=== PATIENT | female | born 1980 | race Caucasian/White ===

== ENCOUNTER 2018-08-29 22:25 | Inpatient (IN) | payer OTHER ==
--- NOTE | 2018-08-29 22:58 | PDOC ---
History of Present Illness - General Chief Complaint: Altered Mental Status Stated Complaint: ALTERED MENTAL STATUS Time Seen by Provider: 08/29/18 22:58 History Source: Patient - History of Present Illness Initial Comments: 08/29/18 23:09 HPI obtained from daughter and [facility] The patient is a 37 year old female with a PMH of Asthma was BIBEMS for AMS. Daughter @ bedside states around 9:30 or 10 p.m. she heard a thud and found patient on the floor leaning on her R hand. When patient tried to get up she fell three times and hit her head. Patient is A&O x2, (oriented to self and place but not time) and then A&O x3. On attending HPI patient notes she has had hematemesis since yesterday and is A&O x2. The patient denies chest pain, shortness of breath, fevers/chills, lightheadedness, palpitations, headache. Surgical history: , Tubal ligation Past History - Past Medical History Allergies/Adverse Reactions: Allergies Allergy/AdvReac Type Severity Reaction Status Date / Time No Allergy Information Allergy Verified 08/29/18 22:36 Available Home Medications: Ambulatory Orders Unobtainable 08/29/18 - Suicide/Smoking/Psychosocial Hx Smoking History: Unknown if ever smoked Have you smoked in the past 12 months: No Information on smoking cessation initiated: No Hx Alcohol Use: Yes Drug/Substance Use Hx: Yes (unknown) Review of Systems - Review of Systems Constitutional: No: Chills, Fever HEENTM: No: Recent change in vision Respiratory: Yes: Hemoptysis Cardiac (ROS): No: Chest Pain, Palpitations *Physical Exam - Vital Signs Last Vital Signs Temp Pulse Resp BP Pulse Ox 98.1 F 120 H 16 129/72 97 08/29/18 22:33 08/29/18 22:33 08/29/18 22:33 08/29/18 22:33 08/29/18 22:33 - Physical Exam Comments: 08/30/18 02:27 General: awake, slow to respond to questions Neuro: variability between A&O x2 -x3 (intermittently oriented to time), CN II- XII grossly intact HEENT: atraumatic, PEERL, EOMI, dried blood in mouth, neck supple CV: S1, S2, RRR Respiratory: CLTA B/L Abdomen: soft, no TTP, (+) bowel sounds ED Treatment Course - LABORATORY CBC & Chemistry Diagram: 08/30/18 00:10 08/30/18 00:10 Medical Decision Making - Medical Decision Making 37 year old female JESS with daughter for AMS @ approximately 10:20 p.m.. S/p fall with head trauma. VS unremarkable PE significant for dried blood in mouth, report of hematemesis by EMS Negative trauma exam (pelvis stable, moves all 4 extremities, no C-spine, L/T/S midline spinal TTP or bony stepoffs ED Course: @ 0004 Patient w/active hematemesis IV Fluid Resuscitation, Protonix, Zofran T/S pending 08/30/18 00:31 My read of Head CT shows no active bleed 08/30/18 02:[address] negative Attending discussed case w/GI requests urine porphyia, ? AIP 08/30/18 02:33 Hb stable Leukocytosis 14.6 -? reactive vs. acute infectious process FOBT (-) UA, UDS pending Patient admitted to inpatient hospitalist service, ICU 08/30/18 02:35 Clinical Impression: AMS 2/2 to ? seizure vs. Toxic substance &/or withdrawal; GI bleed 2/2 ? AIP vs. Esophageal tear/Esophageal/Aortic fistula (less likely) *DC/Admit/Observation/Transfer Diagnosis at time of Disposition: Hematemesis of unknown cause - Discharge Dispostion Condition at time of disposition: Fair Decision to Admit order: Yes - Referrals - Patient Instructions - Post Discharge Activity
[2018-08-29] MEDS ORDERED: SODIUM CHLORIDE 0.9% 500 ML INFUS.BAG IV ONE (23:32)
[2018-08-29] MEDS ORDERED: PANTOPRAZOLE SODIUM 40 MG VIAL IVPUSH ONE (23:43)
[2018-08-29] MEDS ORDERED: ONDANSETRON 4 MG/2 ML VIAL ONE (23:58)
[2018-08-30] MEDS ORDERED: PANTOPRAZOLE SODIUM 40 MG/100 ML BAG IVPB ONE (00:02)
[2018-08-30] MEDS ORDERED: SODIUM CHLORIDE 0.9% 500 ML INFUS.BAG IV ONE (00:05)
[2018-08-30] MEDS ORDERED: ONDANSETRON 4 MG/2 ML VIAL IVPUSH PRN (00:05)
--- NOTE | 2018-08-30 00:12 | PDOC ---
Documentation entered by Leif Barboza SCRIBE, acting as scribe for Cinthya Perdue DO. Cinthya Perdue DO: This documentation has been prepared by the Jabari acosta Daniel, SCRIBE, under my direction and personally reviewed by me in its entirety. I confirm that the documentation accurately reflects all work, treatment, procedures, and medical decision making performed by me. Attending Attestation - Resident Resident Name: Bree Jordan - ED Attending Attestation I have performed the following: I have examined & evaluated the patient, The case was reviewed & discussed with the resident, I agree w/resident's findings & plan, Exceptions are as noted - HPI HPI: 08/29/18 23:32 The patient is a 37 year old female with a past medical history of asthma (on albuterol and steroids PRN) and anxiety brought in by EMS today for evaluation of altered mental status. The patients daughter reports that she found the patient on the floor on her right side around 10 PM with altered mental status after hearing her fall and called EMS. She states that the patient tried to get up and fell 3 times and started having tremors. Patient reports that she had shortness of breath earlier but it resolved with her pump. She states that she hit her head multiple times during the fall. She notes vomiting blood since yesterday. Patient denies any drug use and states last alcohol use was last year. Patient is oriented to person, doesn't recognize daughter, thinks it is 2006, and believes that she is at [facility]. Patient denies headache, lightheadedness. Denies fever, chills. Denies chest pain, shortness of breath. Denies nausea, diarrhea, abdominal pain. Surgical history: - Physicial Exam PE: 08/29/18 23:49 Constitutional: Awake, alert, oriented only to person. No acute distress. Head: Normocephalic. Atraumatic Eyes: PERRL. EOMI. Conjunctivae are not pale. ENT: +coffee grounds on mucous membranes and dried blood in mouth. Mucous membranes are moist and intact. Posterior pharynx without exudates or erythema. Uvula midline. Neck: Supple. Full ROM. No lymphadenopathy. Cardiovascular: Regular rate. Regular rhythm. S1, S2 regular. Distal pulses are 2+ and symmetric. Pulmonary/Chest: No evidence of respiratory distress. Clear to auscultation bilaterally No wheezing, rales or rhonchi. Abdominal: Soft and non-distended. There is no tenderness. No rebound, guarding or rigidity. No organomegaly. No palpable masses. Good bowel sounds. Back: No CVA tenderness. Musculoskeletal: No edema. No cyanosis. No clubbing. Full range of motion in all extremities. Nocalf tenderness. Radial/pedal pulses are intact and 2+ bilaterally Skin: Skin is warm and dry. No petechiae. No purpura. Neurological: Alert and oriented to person but not place or time. Cranial nerves II-XII are grossly intact. Normal speech. Strength is grossly symmetric. No sensory deficits. Psychiatric: Good eye contact. Normal interaction, affect and behavior. - Critical Care Time Total Critical Care Time: 45 Critical Care Statement: The care of this patient involved high complexity decision making to prevent further life threatening deterioration of the patient 's condition and/or to evaluate & treat vital organ system(s) failure or risk of failure. - Medical Decision Making 08/30/18 00:08 I, Dr. Cinthya Perdue, DO, attest that this document has been prepared under my direction and personally reviewed by me in its entirety. I further attest, that it accurately reflects all work, treatment, procedures and medical decision -making performed by me. 08/30/18 00:08 a/p: 37yo female presents from home with her daughter for eval of altered ms -pt with dried blood in the mouth -per the pt - she is aaox1-person, confused to place, time, events of the evening -per the daughter, she heard her mother fall - when she found her she was trying to get up between the kitchen and the living room and kept falling, unable to stand -pt moving all extremities -no c/t/l spine ttp -pt states she has been vomiting blood since yesterday, denies abd pain -pt denies melena -pt with tremors, appears anxious, confused -pts muscle strength and sensation intact -will send labs, ekg, cxr, head ct 08/30/18 00:10 pt with large episode of vomiting blood - red with coffee grounds, given protonix, zofran, ivf hydration pt states she normally goes to [facility] - hx of asthma, anxiety, c section, tubal ligation -pt states her abd pain has been present x last few days pt still confused, tremulous denies recent etoh use, states last use was 1 year ago denies drug use abd is soft, no ttp 08/30/18 00:11 states last menstrual cycle was August 10 08/30/18 01:08 elevated wbc h/h stable head ct without acute findings 08/30/18 01:[address] hoffman - agrees with protonix and labs, will see in consult, if worsening bleeding place ngt with irrigation. 08/30/18 01:26 case discussed w tamiko who accepts pt to service 08/30/18 02:01 case discussed with the ICU resident, accepts pt to icu Heart Score/ECG Review - ECG Intrepretation Comment:: 08/30/18 01:09 sinus tach at 111, nl axis, nl interval, t wave inversions III which are nonspecific
[2018-08-30 00:27] LABS: BASO % 0.3 % (0-2.0); EOS % 0.1 % (0-4.5); HEMATOCRIT 41.3 % (32.4-45.2); HEMOGLOBIN 13.6 GM/dL (10.7-15.3); LYMPH % 7.7 % (8-40); MCH 27.7 pg (25.7-33.7); MEAN CELL VOLUME 83.9 fl (80-96); MEAN PLT VOLUME 9.4 fl (7.5-11.1); MONO % 3.7 % (3.8-10.2); NEUT % 88.2 % (42.8-82.8); PLATELET COUNT 270 K/MM3 (134-434); RBC 4.93 M/mm3 (3.60-5.2); RDW 14.3 % (11.6-15.6); WHITE BLOOD COUNT 14.6 K/mm3 (4.0-10.0)
[2018-08-30] MEDS ORDERED: PANTOPRAZOLE SODIUM 80 MG in SODIUM CHLORIDE 100 ML IVPB SCH (00:45)
[2018-08-30 01:09] LABS: ALBUMIN 4.1 g/dl (3.4-5.0); ALK PHOS 73 U/L (45-117); ANION GAP 11 MMOL/L (8-16); BILIRUBIN,TOTAL 0.2 mg/dL (0.2-1); BLOOD UREA NITROGEN 8.6 mg/dL (7-18); CALCIUM 7.9 mg/dL (8.5-10.1); CHLORIDE 109 mmol/L (98-107); CO2 21 mmol/L (21-32); CREATININE 0.8 mg/dL (0.55-1.3); GLUCOSE,RANDOM 120 mg/dL (74-106); SGOT/AST 17 U/L (15-37); SGPT/ALT 24 U/L (13-61); SODIUM 141 mmol/L (136-145); TOT PROT 6.9 g/dl (6.4-8.2)
[2018-08-30 01:54] LABS: VENOUS PC02 42.8 mmHg (41-51); VENOUS PH 7.29 (7.31-7.41); VENOUS PO2 69.2 mmHg (30-40)
[2018-08-30] MEDS ORDERED: PANTOPRAZOLE SODIUM 40 MG VIAL ONE (01:58)
[2018-08-30 02:13] LABS: ACTIVATED PTT 26.1 SECONDS (25.2-36.5); INR 1.08 (0.83-1.09); PROTHROMBIN TIME (PATIENT) 12.7 SEC (9.7-13.0)
[2018-08-30 02:33] LABS: COCAINE, UR NEGATIVE ng/ml (CUTOFF=300); METHADONE, UR NEGATIVE ng/ml (CUTOFF=300); OPIATES, URI NEGATIVE ng/ml (CUTOFF=300); PHENCYCLIDINE,URINE NEGATIVE ng/ml (CUTOFF=25); URINE AMPHETAMINES NEGATIVE ng/ml (CUTOFF=500); URINE BARBITURATES NEGATIVE ng/ml (CUTOFF=200); URINE BENZODIAZEPINES NEGATIVE ng/ml (CUTOFF=200)
[2018-08-30 02:41] LABS: EPI CELLS 2.4 /HPF (0-5/HPF); HYALINE CASTS 16 /lpf (0-8); PH,URINE 5.5 (5.0-8.0); URINE APPEARANCE CLEAR; URINE BACTERIA 2.7 /hpf (NEGATIVE); URINE BILIRUBIN NEGATIVE (NEGATIVE); URINE COLOR YELLOW; URINE GLUCOSE (UA) NEGATIVE (NEGATIVE); URINE KETONE NEGATIVE (NEGATIVE); URINE LEUK ESTERASE NEGATIVE (NEGATIVE); URINE NITRITE NEGATIVE (NEGATIVE); URINE PROTEIN 1+ (NEGATIVE); URINE RBC 2 /hpf (0-4); URINE WBC 1 /hpf (0-5)
[2018-08-30 02:50] LABS: MAGNESIUM 2.4 mg/dL (1.8-2.4)
--- NOTE | 2018-08-30 02:51 | CONSULT ---
Consultation: CONSULT SERVICE: ICU Resident HISTORY OF PRESENT ILLNESS: 37yo F with apparent only history of asthma treated mostly through [facility] system who presents here s/p fall and AMS. Pt was heard to fall by daughter at home and when observed pt was seen getting up and then falling back onto her R side x3 episodes. Pt was taken to the ER for further evaluation due to having completely altered mentation and upon arrival pt reported she was in the year 2006, at [facility], and would point at her daughter and state that it was her brother. Throughout her ER stay pt began to regain some mentation, however she had one episode of hematemesis estimated to be around 50+cc worth which covered to the foot of her stretcher. Upon my evaluation pt was oriented x2 and had trouble with her location, but when reminded she stated that someone told her that before and she forgot. Pt denies any memory of her hematemesis at the hospital and only remembers falling once. Pt is slightly anxious, but otherwise has no complaints at this time. Of note, pt's daughter reported to ER staff that the pt had a previous episode of hematemesis yesterday, however did not fall nor had any mentation issues. Pt' s daughter reports that she has never seen the patient drink within the past year or so and has only seen one-a-day vitamins as her only medication. Both patient and daughter deny any travel outside of [place]. Pt works getting her GED at this time and lives in an apartment with her daughter. Denies any abnormal food or drink (also confirmed by daughter). There is reported tremoring , however at my time of exam pt seems to be only anxious without real exhitition of essential/intention tremor. REVIEW OF SYSTEMS: As per HPI. Limited due to memory deficiencies of events. PHYSICAL EXAMINATION Vital Signs 08/29/18 22:33 Temperature 98.1 F Pulse Rate 120 H Respiratory 16 Rate Blood Pressure 129/72 O2 Sat by Pulse 97 Oximetry (%) GENERAL: NAD, Awake, alert, and oriented x2, however remembers her location being corrected previously. HEENT: NC/AT, no scalp hematomas noted, no rodriguez signs, EOMI, BLAISE, sclera anicteric, R eye with conjunctival injections, no conjunctival pallor noted. Dried blood in posterior oropharynx, MMM NECK: No JVD, soft, no TTP, no rash LUNGS: CTA bilaterally. No wheezes, and no crackles. No accessory muscle use. HEART: Tachycardic at 105bpm, normal S1 and S2 without murmur ABDOMEN: Soft, NT/ND, normoactive BS, no aortic or renal bruits, no celiac/SMA bruits, no guarding, no masses appreciated, no hepatomegaly and liver edge without nodularity. MUSCULOSKELETAL: No CVA tenderness. EXTREMITIES: 2+ DP pulses, warm, well-perfused. No calf tenderness. No peripheral edema. Cap refill <2sec NEUROLOGICAL: educational technology coordinator II-XII intact. Strength 5/5 in all four extremities. Sensation intact thorughout. Normal speech. Gait not observed. No tremor. PSYCHIATRIC: Cooperative. Good eye contact. Appropriate mood and affect. SKIN: Warm, dry, no rashes around eyes or rest of body. Laboratory Results 08/30/18 08/30/18 08/30/18 00:10 00:10 00:10 WBC 14.6 H RBC 4.93 Hgb 13.6 Hct 41.3 MCV 83.9 MCH 27.7 MCHC 33.0 RDW 14.3 Plt Count 270 MPV 9.4 Absolute Neuts (auto) 12.9 H Neutrophils % 88.2 H Lymphocytes % 7.7 L Monocytes % 3.7 L Eosinophils % 0.1 Basophils % 0.3 Nucleated RBC % 0 PT with INR INR PTT (Actin FS) VBG pH POC VBG pCO2 POC VBG pO2 VBG HCO3 VBG O2 Sat (Sonia) VBG Base Excess Sodium 141 Potassium 4.0 Chloride 109 H Carbon Dioxide 21 Anion Gap 11 BUN 8.6 Creatinine 0.8 Est GFR (CKD-EPI)AfAm 107.64 Est GFR (CKD-EPI)NonAf 92.87 Random Glucose 120 H Lactic Acid Calcium 7.9 L Total Bilirubin 0.2 AST 17 ALT 24 Alkaline Phosphatase 73 Ammonia Creatine Kinase 156 Creatine Kinase Index 0.8 CK-MB (CK-2) 1.4 Troponin I < 0.02 Total Protein 6.9 Albumin 4.1 TSH 2.61 Serum , Qual Negative Stool Occult Blood Salicylates Opiates Screen Methadone Screen Acetaminophen Barbiturate Screen Phencyclidine Screen Ur Amphetamines Screen MDMA (Ecstasy) Screen Benzodiazepines Screen Cocaine Screen U Marijuana (THC) Screen 08/30/18 08/30/1808/30/19 00:10 00:35 00:58 WBC RBC Hgb Hct MCV MCH MCHC RDW Plt Count MPV Absolute Neuts (auto) Neutrophils % Lymphocytes % Monocytes % Eosinophils % Basophils % Nucleated RBC % PT with INR INR PTT (Actin FS) VBG pH POC VBG pCO2 POC VBG pO2 VBG HCO3 VBG O2 Sat (Sonia) VBG Base Excess Sodium Potassium Chloride Carbon Dioxide Anion Gap BUN Creatinine Est GFR (CKD-EPI)AfAm Est GFR (CKD-EPI)NonAf Random Glucose Lactic Acid Calcium Total Bilirubin AST ALT Alkaline Phosphatase Ammonia 41.60 H Creatine Kinase Creatine Kinase Index CK-MB (CK-2) Troponin I Total Protein Albumin TSH Serum , Qual Stool Occult Blood Negative Salicylates 1.9 L Opiates Screen Methadone Screen Acetaminophen < 2.0 L Barbiturate Screen Phencyclidine Screen Ur Amphetamines Screen MDMA (Ecstasy) Screen Benzodiazepines Screen Cocaine Screen U Marijuana (THC) Screen 08/30/18 08/30/18 08/30/18 01:25 01:36 01:36 WBC RBC Hgb Hct MCV MCH MCHC RDW Plt Count MPV Absolute Neuts (auto) Neutrophils % Lymphocytes % Monocytes % Eosinophils % Basophils % Nucleated RBC % PT with INR 12.70 INR 1.08 PTT (Actin FS) 26.1 VBG pH POC VBG pCO2 POC VBG pO2 VBG HCO3 VBG O2 Sat (Sonia) VBG Base Excess Sodium Potassium Chloride Carbon Dioxide Anion Gap BUN Creatinine Est GFR (CKD-EPI)AfAm Est GFR (CKD-EPI)NonAf Random Glucose Lactic Acid 1.1 Calcium Total Bilirubin AST ALT Alkaline Phosphatase Ammonia Creatine Kinase Creatine Kinase Index CK-MB (CK-2) Troponin I Total Protein Albumin TSH Serum , Qual Stool Occult Blood Salicylates Opiates Screen Negative Methadone Screen Negative Acetaminophen Barbiturate Screen Negative Phencyclidine Screen Negative Ur Amphetamines Screen Negative MDMA (Ecstasy) Screen Negative Benzodiazepines Screen Negative Cocaine Screen Negative U Marijuana (THC) Screen Negative 08/30/18 01:36 WBC RBC Hgb Hct MCV MCH MCHC RDW Plt Count MPV Absolute Neuts (auto) Neutrophils % Lymphocytes % Monocytes % Eosinophils % Basophils % Nucleated RBC % PT with INR INR PTT (Actin FS) VBG pH 7.29 L POC VBG pCO2 42.8 POC VBG pO2 69.2 H VBG HCO3 20.0 L VBG O2 Sat (Sonia) 92.4 H VBG Base Excess -5.8 L Sodium Potassium Chloride Carbon Dioxide Anion Gap BUN Creatinine Est GFR (CKD-EPI)AfAm Est GFR (CKD-EPI)NonAf Random Glucose Lactic Acid Calcium Total Bilirubin AST ALT Alkaline Phosphatase Ammonia Creatine Kinase Creatine Kinase Index CK-MB (CK-2) Troponin I Total Protein Albumin TSH Serum , Qual Stool Occult Blood Salicylates Opiates Screen Methadone Screen Acetaminophen Barbiturate Screen Phencyclidine Screen Ur Amphetamines Screen MDMA (Ecstasy) Screen Benzodiazepines Screen Cocaine Screen U Marijuana (THC) Screen Active Medications Generic Name Dose Route Start Last Admin Trade Name Freq PRN Reason Stop Dose Admin Pantoprazole Sodium 80 mg/ 100 mls @ 10 mls/hr 08/30/18 00:45 08/30/18 02:18 Sodium Chloride IVPB 10 mls/hr Q10H ESTHER Administration 8 MG/HR Ondansetron HCl 4 mg 08/30/18 00:05 08/30/18 00:13 Zofran Injection IVPUSH 4 mg Q4H PRN Administration NAUSEA AND/OR VOMITING Head CT images reviewed: No acute pathology CXR image reviewed: No acute pathology noted ECG - Sinus tachycardia at 111bpm, Normal axis, normal R-wave progression, no THANIA/STD, isolated TWI in V3 only, signs of R-heart strain on ECG vs. potential lead placements, QTc 486ms ASSESSMENT/PLAN: Metabolic encephalopathy of unclear etiology Hematemesis Leukocytosis Acidemia --Unclear etiology for pt's exhibiting symptoms --Suspect seizure most likely given pt's improvement of mentation; possible EEG and monitor for seizure-like activity --GI consulted and will r/o porphyria as pt both has neurologic and abdominal symptoms however does not have rash --Will obtain EMILIANO, ESR, CRP to r/o any OPERATIONS RESEARCH ANALYST vasculities in case of unconventional presentation --Doubt alcohol withdrawal --Doubt infection despite leukocytosis --Standard UTox negative at this point --Ammonia of 41 not severe enough to cause encephalopathy and subsequent resolution without intervention --Given Hematemesis will continue IV Protonix for UGIB --Continue D5-1/2NS@83cc/hr for hydration --Monitor hemodynamics and H/H --Pt Wells Criteria 1.5 and given ECG with drop attack ordered D-dimer for r/o --Minimal non-anion gap metabolic acidemia can be explained by hyperchloridemia FEN: Fluids: D5-1/2NS@83cc/hr Electrolyte abnormalities: HypoCa despite correction; repleted 1gm CaGluconate Nutrition: NPO for overnight; advance to clear liquid if no more episodes of hematemesis PPX: DVT - SCDs only due to hematemesis GI - Already on protonix Dispo: Due to unknown etiology for patient's symptoms and significant amount of hematemesis pt can be monitored in ICU overnight. If pt remains stable can transfer to med-surg in MARIANGEL Xiong DO - PGY-2 Visit type - Emergency Visit Emergency Visit: Yes ED Registration Date: 08/30/18 Care time: The patient presented to the Emergency Department on the above date and was hospitalized for further evaluation of their emergent condition. - New Patient This patient is new to me today: Yes Date on this admission: 08/30/18 - Critical Care Critical Care patient: No
[2018-08-30] MEDS ORDERED: CALCIUM GLUCONATE 10% - 1,000 MG/10 ML VIAL IVPUSH ONE (02:54)
[2018-08-30] MEDS ORDERED: SODIUM CHLORIDE 1,000 ML IV SCH (03:00)
[2018-08-30] MEDS ORDERED: DEXTROSE 5%-0.45% SALINE 1,000 ML IV SCH (03:15)
--- NOTE | 2018-08-30 03:23 | HP ---
CHIEF COMPLAINT: AMS and hematemesis x 1 day PCP: HISTORY OF PRESENT ILLNESS: Pt is a 37 yo F with pmhx of asthma and anxiety disorder BIBEMS after her preteen daughter found her on the floor after a loud thud this evening. Per daughter she had just left the mother for a couple of minutes to her room to play video games when she heard the sound and found her arms shaking. While the daughter was on the phone with EMS, the mother threw up reddish colored vomit. Initially in the ED, the pt thought she was at [facility], did not recognize her daughter, and thought it was 2006. In the ED, she again vomited red/coffee colored substance onto her clothes, non projectile, no obvious clots. Pt denies alcohol ingestion (per ED only on 's day). ED reported she used her albuterol inhaler earlier in the day, per pt, the last time she used her inhaler was april. No prior seizure disorders. Pt reports migraine headaches, with last episode about 2 years ago, relieved with over the counter medications. Pt reports using multiple "supplements" does not have a detailsWhen I assessed the patient, she was oriented x3 but did not remember what had happened. Pt lives alone with daughter. Pt's mother lives in [place] but her father lives in [place] but per pt 'is too sick to take care of anyone" . Pt was concerned about the welfare of her daughter while she was in the hospital and wanted to leave tonight. She however agreed to stay till morning for further evaluation ER course was notable for: (1) Head CT- ve for acute pathology (2)WBC-14.6, H/H-13.6/41.3, Cl-109, BUN/cr- (3) Recent Travel: PAST MEDICAL HISTORY: Asthma, migraines, anxiety PAST SURGICAL HISTORY: B/L tubal ligation Social History: Smoking:Denies Alcohol: occassional Drugs: Denies Family History: Allergies No Allergy Information Available Allergy (Verified 08/29/18 22:36) HOME MEDICATIONS: Home Medications Medication Instructions Recorded Unobtainable 08/29/18 REVIEW OF SYSTEMS CONSTITUTIONAL: Absent: fever, chills, diaphoresis, generalized weakness, malaise, loss of appetite, weight change HEENT: Absent: rhinorrhea, nasal congestion, throat pain, throat swelling, difficulty swallowing, mouth swelling, ear pain, eye pain, visual changes CARDIOVASCULAR: Absent: chest pain, syncope, palpitations, irregular heart rate, lightheadedness , peripheral edema RESPIRATORY: Absent: cough, shortness of breath, dyspnea with exertion, orthopnea, wheezing, stridor, hemoptysis GASTROINTESTINAL:vomiting+ Absent: abdominal pain, abdominal distension, nausea, diarrhea, constipation, melena, hematochezia GENITOURINARY: Absent: dysuria, frequency, urgency, hesitancy, hematuria, flank pain, genital pain MUSCULOSKELETAL: Absent: myalgia, arthralgia, joint swelling, back pain, neck pain SKIN: Absent: rash, itching, pallor HEMATOLOGIC/IMMUNOLOGIC: Absent: easy bleeding, easy bruising, lymphadenopathy, frequent infections ENDOCRINE: Absent: unexplained weight gain, unexplained weight loss, heat intolerance, cold intolerance NEUROLOGIC: mental status changes+, possible seizure, headache after fall, bladder or bowel incontinence+ Absent: focal weakness or paresthesias, dizziness, unsteady gait, PSYCHIATRIC: Absent: anxiety, depression, suicidal or homicidal ideation, hallucinations. PHYSICAL EXAMINATION Vital Signs - 24 hr 08/29/18 22:33 Temperature 98.1 F Pulse Rate 120 H Respiratory 16 Rate Blood Pressure 129/72 O2 Sat by Pulse 97 Oximetry (%) GENERAL: Awake, alert, and fully oriented, in no acute distress. HEAD: Normal with no signs of trauma. EYES: Pupils equal, round and reactive to light, extraocular movements intact, sclera anicteric, red R conjunctiva . EARS, NOSE, THROAT: Ears normal, nares patent, oropharynx clear without exudates. Dried blood over lips and over nose, with no active bleeding or injures tongue or cheek NECK: Normal range of motion, supple without lymphadenopathy LUNGS: Breath sounds equal, clear to auscultation bilaterally. No wheezes, and no crackles. No accessory muscle use. HEART: Regular rate and rhythm, normal S1 and S2 without murmur ABDOMEN: Soft, nontender, not distended, normoactive bowel sounds, no guarding, no rebound, no masses. No hepatomegaly or splenomegaly. MUSCULOSKELETAL: Normal range of motion at all joints. No bony deformities or tenderness. No CVA tenderness. UPPER EXTREMITIES: 2+ pulses, warm, well-perfused. No cyanosis. No clubbing. tremors, no asterexis LOWER EXTREMITIES: 2+ pulses, warm, well-perfused. No calf tenderness. No peripheral edema. NEUROLOGICAL: Initially not oriented, by the time I saw she was AA x3 with improved recollection of events over time. Increased knee reflex bilaterally. Absent babinski. Cranial nerves II-XII intact. Normal speech.Gait not observed PSYCHIATRIC: Cooperative. Good eye contact. Appropriate mood and affect. SKIN: Warm, dry, normal turgor, no rashes or lesions noted, normal capillary refill. Laboratory Results - last 24 hr 08/30/18 08/30/18 08/30/18 00:09 00:10 00:10 WBC 14.6 H RBC 4.93 Hgb 13.6 Hct 41.3 MCV 83.9 MCH 27.7 MCHC 33.0 RDW 14.3 Plt Count 270 MPV 9.4 Absolute Neuts (auto) 12.9 H Neutrophils % 88.2 H Lymphocytes % 7.7 L Monocytes % 3.7 L Eosinophils % 0.1 Basophils % 0.3 Nucleated RBC % 0 PT with INR INR PTT (Actin FS) VBG pH POC VBG pCO2 POC VBG pO2 VBG HCO3 VBG O2 Sat (Sonia) VBG Base Excess Sodium 141 Potassium 4.0 Chloride 109 H Carbon Dioxide 21 Anion Gap 11 BUN 8.6 Creatinine 0.8 Est GFR (CKD-EPI)AfAm 107.64 Est GFR (CKD-EPI)NonAf 92.87 Random Glucose 120 H Lactic Acid Calcium 7.9 L Magnesium Total Bilirubin 0.2 AST 17 ALT 24 Alkaline Phosphatase 73 Ammonia Creatine Kinase 156 Creatine Kinase Index 0.8 CK-MB (CK-2) 1.4 Troponin I < 0.02 Total Protein 6.9 Albumin 4.1 TSH 2.61 Serum , Qual Urine Color Urine Appearance Urine pH Ur Specific [place] Urine Protein Urine Glucose (UA) Urine Ketones Urine Blood Urine Nitrite Urine Bilirubin Urine Urobilinogen Ur Leukocyte Esterase Urine WBC (Auto) Urine RBC (Auto) Urine Casts (Auto) U Epithel Cells (Auto) Urine Bacteria (Auto) Stool Occult Blood Salicylates Opiates Screen Methadone Screen Acetaminophen Barbiturate Screen Phencyclidine Screen Ur Amphetamines Screen MDMA (Ecstasy) Screen Benzodiazepines Screen Cocaine Screen U Marijuana (THC) Screen Alcohol, Quantitative Blood Type O POSITIVE Antibody Screen Negative 08/30/18 08/30/18 08/30/18 00:10 00:10 00:10 WBC RBC Hgb Hct MCV MCH MCHC RDW Plt Count MPV Absolute Neuts (auto) Neutrophils % Lymphocytes % Monocytes % Eosinophils % Basophils % Nucleated RBC % PT with INR INR PTT (Actin FS) VBG pH POC VBG pCO2 POC VBG pO2 VBG HCO3 VBG O2 Sat (Sonia) VBG Base Excess Sodium Potassium Chloride Carbon Dioxide Anion Gap BUN Creatinine Est GFR (CKD-EPI)AfAm Est GFR (CKD-EPI)NonAf Random Glucose Lactic Acid Calcium Magnesium 2.4 Total Bilirubin AST ALT Alkaline Phosphatase Ammonia Creatine Kinase Creatine Kinase Index CK-MB (CK-2) Troponin I Total Protein Albumin TSH Serum , Qual Negative Urine Color Urine Appearance Urine pH Ur Specific [place] Urine Protein Urine Glucose (UA) Urine Ketones Urine Blood Urine Nitrite Urine Bilirubin Urine Urobilinogen Ur Leukocyte Esterase Urine WBC (Auto) Urine RBC (Auto) Urine Casts (Auto) U Epithel Cells (Auto) Urine Bacteria (Auto) Stool Occult Blood Salicylates 1.9 L Opiates Screen Methadone Screen Acetaminophen < 2.0 L Barbiturate Screen Phencyclidine Screen Ur Amphetamines Screen MDMA (Ecstasy) Screen Benzodiazepines Screen Cocaine Screen U Marijuana (THC) Screen Alcohol, Quantitative < 3.0 Blood Type Antibody Screen 08/30/18 08/30/18 08/30/18 00:35 00:58 01:25 WBC RBC Hgb Hct MCV MCH MCHC RDW Plt Count MPV Absolute Neuts (auto) Neutrophils % Lymphocytes % Monocytes % Eosinophils % Basophils % Nucleated RBC % PT with INR 12.70 INR 1.08 PTT (Actin FS) 26.1 VBG pH POC VBG pCO2 POC VBG pO2 VBG HCO3 VBG O2 Sat (Sonia) VBG Base Excess Sodium Potassium Chloride Carbon Dioxide Anion Gap BUN Creatinine Est GFR (CKD-EPI)AfAm Est GFR (CKD-EPI)NonAf Random Glucose Lactic Acid Calcium Magnesium Total Bilirubin AST ALT Alkaline Phosphatase Ammonia 41.60 H Creatine Kinase Creatine Kinase Index CK-MB (CK-2) Troponin I Total Protein Albumin TSH Serum , Qual Urine Color Urine Appearance Urine pH Ur Specific [place] Urine Protein Urine Glucose (UA) Urine Ketones Urine Blood Urine Nitrite Urine Bilirubin Urine Urobilinogen Ur Leukocyte Esterase Urine WBC (Auto) Urine RBC (Auto) Urine Casts (Auto) U Epithel Cells (Auto) Urine Bacteria (Auto) Stool Occult Blood Negative Salicylates Opiates Screen Methadone Screen Acetaminophen Barbiturate Screen Phencyclidine Screen Ur Amphetamines Screen MDMA (Ecstasy) Screen Benzodiazepines Screen Cocaine Screen U Marijuana (THC) Screen Alcohol, Quantitative Blood Type Antibody Screen 08/30/18 08/30/18 08/30/18 01:36 01:36 01:36 WBC RBC Hgb Hct MCV MCH MCHC RDW Plt Count MPV Absolute Neuts (auto) Neutrophils % Lymphocytes % Monocytes % Eosinophils % Basophils % Nucleated RBC % PT with INR INR PTT (Actin FS) VBG pH POC VBG pCO2 POC VBG pO2 VBG HCO3 VBG O2 Sat (Sonia) VBG Base Excess Sodium Potassium Chloride Carbon Dioxide Anion Gap BUN Creatinine Est GFR (CKD-EPI)AfAm Est GFR (CKD-EPI)NonAf Random Glucose Lactic Acid 1.1 Calcium Magnesium Total Bilirubin AST ALT Alkaline Phosphatase Ammonia Creatine Kinase Creatine Kinase Index CK-MB (CK-2) Troponin I Total Protein Albumin TSH Serum , Qual Urine Color Yellow Urine Appearance Clear Urine pH 5.5 Ur Specific [place] 1.018 Urine Protein 1+ H Urine Glucose (UA) Negative Urine Ketones Negative Urine Blood Negative Urine Nitrite Negative Urine Bilirubin Negative Urine Urobilinogen 1.0 Ur Leukocyte Esterase Negative Urine WBC (Auto) 1 Urine RBC (Auto) 2 Urine Casts (Auto) 16 U Epithel Cells (Auto) 2.4 Urine Bacteria (Auto) 2.7 Stool Occult Blood Salicylates Opiates Screen Negative Methadone Screen Negative Acetaminophen Barbiturate Screen Negative Phencyclidine Screen Negative Ur Amphetamines Screen Negative MDMA (Ecstasy) Screen Negative Benzodiazepines Screen Negative Cocaine Screen Negative U Marijuana (THC) Screen Negative Alcohol, Quantitative Blood Type Antibody Screen 08/30/18 01:36 WBC RBC Hgb Hct MCV MCH MCHC RDW Plt Count MPV Absolute Neuts (auto) Neutrophils % Lymphocytes % Monocytes % Eosinophils % Basophils % Nucleated RBC % PT with INR INR PTT (Actin FS) VBG pH 7.29 L POC VBG pCO2 42.8 POC VBG pO2 69.2 H VBG HCO3 20.0 L VBG O2 Sat (Sonia) 92.4 H VBG Base Excess -5.8 L Sodium Potassium Chloride Carbon Dioxide Anion Gap BUN Creatinine Est GFR (CKD-EPI)AfAm Est GFR (CKD-EPI)NonAf Random Glucose Lactic Acid Calcium Magnesium Total Bilirubin AST ALT Alkaline Phosphatase Ammonia Creatine Kinase Creatine Kinase Index CK-MB (CK-2) Troponin I Total Protein Albumin TSH Serum , Qual Urine Color Urine Appearance Urine pH Ur Specific [place] Urine Protein Urine Glucose (UA) Urine Ketones Urine Blood Urine Nitrite Urine Bilirubin Urine Urobilinogen Ur Leukocyte Esterase Urine WBC (Auto) Urine RBC (Auto) Urine Casts (Auto) U Epithel Cells (Auto) Urine Bacteria (Auto) Stool Occult Blood Salicylates Opiates Screen Methadone Screen Acetaminophen Barbiturate Screen Phencyclidine Screen Ur Amphetamines Screen MDMA (Ecstasy) Screen Benzodiazepines Screen Cocaine Screen U Marijuana (THC) Screen Alcohol, Quantitative Blood Type Antibody Screen ASSESSMENT/PLAN: Pt is a 37 yo F with PMHx of asthma and anxiety disorder BIBEMS after her preteen daughter found her on the floor and subsequently shaking with 2 episodes vomiting of red/brownish substance. AMS: Pt found on floor by daughter after a fall Daughter reported shaking and urinary incontinence Could be seizure- Head CT negative for bleed or mass, MRI brain w/wo contrast Pt likely in post ictal state with confusion, rapid reversal likely in favor of seizure vs other causes appears to be back at baseline with improved memory of event Utox negative, Ammonia minimally elevated, salicylates, tylenol low UA negative for infection Seizure No prior hx Prolactin level pending Keppra Vomiting/Hematemesis Unclear duration of the vomiting- pt reported different times Pt denies ETOH ingestion Ammonia level slightly elevated EMILIANO- R/O vasculitis Fecal occult negative Dr Bhat consulted Suggested r/o Porphyria CBC stable at presentation Repeat stat pending Leucocytosis Could be reactive LA 1.1, no evidence of sepsis at this time Tachycardia Sinus tachycardia Could be from recent vomiting/ retching/dehydration Improved with fluids R/O PE- possible s1, Q3T3 on EKG with enlarged R heart border D dimer, pending Well's score for possibly moderate risk if hemoptysis and noot hematemesis Asthma Does not appear in exacerbation Describes mild persistent asthma VBG- Metabolic acidosis Abg pending, sating well on room air Anxiety disorder Per [facility]- Ed was in touch with them, pt does not use meds for anxiety Had some tremors initially in ED Cont to monitor ICU - Likely GI bleed with AMS Visit type - Emergency Visit Emergency Visit: Yes ED Registration Date: 08/30/18 Care time: The patient presented to the Emergency Department on the above date and was hospitalized for further evaluation of their emergent condition. - New Patient This patient is new to me today: Yes Date on this admission: 08/30/18 - Critical Care Critical Care patient: Yes Total Critical Care Time (in minutes): 37 Critical Care Statement: The care of this patient involved high complexity decision making to prevent further life threatening deterioration of the patient 's condition and/or to evaluate & treat vital organ system(s) failure or risk of failure.
[2018-08-30] MEDS ORDERED: levETIRAcetam 500 MG/5 ML INJECTION VIAL IVPB ONE (05:53)
--- NOTE | 2018-08-30 06:04 | PN ---
Teaching Attending Note Name of Resident: Gloria Villalta ATTENDING PHYSICIAN STATEMENT I saw and evaluated the patient. I reviewed the resident's note and discussed the case with the resident. I agree with the resident's findings and plan as documented. SUBJECTIVE: Seen and examined; please refer to resident note for further historical information. Briefly, this jere 37 y/o female presenting for hematemesis and AMS following a convulsive episode; she was also found to have an elevated NH4. She is currently hemodynamically stable and afebrile and is mentating appropriately without any confusion and is AAOx3 and at her baseline per her and her daughter. Her daughter heard a loud noise and found her mother on the ground in a wet spot (likely urine) having a convulsive episode that lasted an unknown amount of time. This spontaneously resolved but she tells us that her mother was very sleepy after it and this did gradually improve. The patient herself does not recall the episode at all. No history of seizures or metabolic disorders, etc. in her family per the patient. She has a remote history of crack cocaine use but has not abused this in years. She denies any OTC medication abuse (uses many supplements from her dad but these are all legal vitamins per the patient and she will bring in a picture of the bottles) or any use of bath salts, etc. She denies alcohol abuse. Yesterday she had some nausea with several rounds of NBNB vomiting; today she had a dark-colored vomitus that was suspect for blood. FOBT negative and Hb wnl. None of the said vomit is available to send for gastric occult blood. 10 sys ROS done and negative aside from HPI PMH, PSH, FH, SH reviewed Home Medications Medication Instructions Recorded Unobtainable 08/29/18 OBJECTIVE: VS, labs, imaging reviewed NAD, AAO, resting comfortably in bed NC AT EOMI PERRLA RRR s1/2 no mgr CN2-12 wnl, no fnd. Normal mood, appropriate behavior NT ND +BS CT head without acute pathology MRI brain w/ w/o pending EKG reviewed ASSESSMENT AND PLAN: Patient presents following convulsive episode with apparent post-ictal state and loss of bladder function; she is also found to have suspected hematemesis with a negative FOBT. 1) AMS -May reflect post ictal state given clinical history; she is at her baseline now. -No substance abuse, no alcohol abuse. Negative head CT; MRI pending. Consider neurology consultation in the AM. Checking ESR/CRP/EMILIANO/RF/RPR/HIV -Given elevated NH4 can consider porphyria but she denies abdominal discomfort, rashes at this time. -Loading with Keppra; IV 500 BID -Seizure precautions, neuro checks. 2) Hematemesis -q4h FOBT until stability ascertained. H/H wnl at this time. Not tachycardic with no further bleeding. -On PPI drip started in the ER -Followup Gi recs; will defer ultimate care to their service. Appreciate expert opinion. -Strict NPO Full Code
[2018-08-30 06:28] VITALS: BMI 25.7
[2018-08-30] MEDS ORDERED: PT OWN MED DRAWER 7, Y5N ONE ×2 (08:13→10:04)
--- NOTE | 2018-08-30 08:22 | CON.GI ---
Consult - Alcohol/Substance Use Hx Alcohol Use: Yes - Smoking History Smoking history: Unknown if ever smoked Have you smoked in the past 12 months: No Home Medications - Allergies Allergies/Adverse Reactions: Allergies Allergy/AdvReac Type Severity Reaction Status Date / Time No Allergy Information Allergy Verified 08/29/18 22:36 Available - Home Medications Home Medications: Ambulatory Orders Unobtainable 08/29/18 Physical Exam-GI Vital Signs: Vital Signs Temperature 97.8 F 08/30/18 06:13 Pulse Rate 76 08/30/18 06:13 Respiratory Rate 18 08/30/18 06:13 Blood Pressure 106/71 08/30/18 06:13 O2 Sat by Pulse Oximetry (%) 97 08/30/18 06:06 Labs: CBC, BMP 08/30/18 00:10 08/30/18 00:10 INR, PTT INR 1.08 (0.83-1.09) 08/30/18 01:25
--- NOTE | 2018-08-30 08:27 | PN ---
Physical Exam: SUBJECTIVE: Patient seen and examined at bedside. no acute events since admission. endorses lightheaded when sitting up. no longer confused. says she may have had tounge biting when she passed out. denies currently fever chills cp sob n/v/d OBJECTIVE: Vital Signs Period Temp Pulse Resp BP Sys/Campbell Pulse Ox Last 24 Hr 97.8 F-98.1 F 69-120 16-22 106-129/71-77 97-97 GENERAL: The patient is awake, alert, and fully oriented, in no acute distress. HEAD: Normal with no signs of trauma. EYES: PERRL, extraocular movements intact, sclera anicteric, conjunctiva clear. No ptosis. ENT: Ears normal, nares patent, oropharynx clear without exudates, moist mucous membranes. NECK: Trachea midline, full range of motion, supple. LUNGS: Breath sounds equal, clear to auscultation bilaterally, no wheezes, no crackles, no accessory muscle use. HEART: Regular rate and rhythm, S1, S2 without murmur, rub or gallop. ABDOMEN: Soft, nontender, nondistended, normoactive bowel sounds, no guarding, no rebound, no hepatosplenomegaly, no masses. EXTREMITIES: 2+ pulses, warm, well-perfused, no edema. NEUROLOGICAL: Cranial nerves II through XII grossly intact. Normal speech, gait not observed. knee hyper-reflexia b/l PSYCH: Normal mood, normal affect. SKIN: Warm, dry, normal turgor, no rashes or lesions noted Laboratory Results - last 24 hr 08/30/18 08/30/18 08/30/18 00:09 00:10 00:10 WBC 14.6 H RBC 4.93 Hgb 13.6 Hct 41.3 MCV 83.9 MCH 27.7 MCHC 33.0 RDW 14.3 Plt Count 270 MPV 9.4 Absolute Neuts (auto) 12.9 H Neutrophils % 88.2 H Lymphocytes % 7.7 L Monocytes % 3.7 L Eosinophils % 0.1 Basophils % 0.3 Nucleated RBC % 0 PT with INR INR PTT (Actin FS) VBG pH POC VBG pCO2 POC VBG pO2 VBG HCO3 VBG O2 Sat (Sonia) VBG Base Excess Sodium 141 Potassium 4.0 Chloride 109 H Carbon Dioxide 21 Anion Gap 11 BUN 8.6 Creatinine 0.8 Est GFR (CKD-EPI)AfAm 107.64 Est GFR (CKD-EPI)NonAf 92.87 Random Glucose 120 H Lactic Acid Calcium 7.9 L Magnesium Total Bilirubin 0.2 AST 17 ALT 24 Alkaline Phosphatase 73 Ammonia Creatine Kinase 156 Creatine Kinase Index 0.8 CK-MB (CK-2) 1.4 Troponin I < 0.02 Total Protein 6.9 Albumin 4.1 TSH 2.61 Serum , Qual Urine Color Urine Appearance Urine pH Ur Specific Schneider Urine Protein Urine Glucose (UA) Urine Ketones Urine Blood Urine Nitrite Urine Bilirubin Urine Urobilinogen Ur Leukocyte Esterase Urine WBC (Auto) Urine RBC (Auto) Urine Casts (Auto) U Epithel Cells (Auto) Urine Bacteria (Auto) Stool Occult Blood Salicylates Opiates Screen Methadone Screen Acetaminophen Barbiturate Screen Phencyclidine Screen Ur Amphetamines Screen MDMA (Ecstasy) Screen Benzodiazepines Screen Cocaine Screen U Marijuana (THC) Screen Alcohol, Quantitative Blood Type O POSITIVE Antibody Screen Negative 08/30/18 08/30/18 08/30/18 00:10 00:10 00:10 WBC RBC Hgb Hct MCV MCH MCHC RDW Plt Count MPV Absolute Neuts (auto) Neutrophils % Lymphocytes % Monocytes % Eosinophils % Basophils % Nucleated RBC % PT with INR INR PTT (Actin FS) VBG pH POC VBG pCO2 POC VBG pO2 VBG HCO3 VBG O2 Sat (Sonia) VBG Base Excess Sodium Potassium Chloride Carbon Dioxide Anion Gap BUN Creatinine Est GFR (CKD-EPI)AfAm Est GFR (CKD-EPI)NonAf Random Glucose Lactic Acid Calcium Magnesium 2.4 Total Bilirubin AST ALT Alkaline Phosphatase Ammonia Creatine Kinase Creatine Kinase Index CK-MB (CK-2) Troponin I Total Protein Albumin TSH Serum , Qual Negative Urine Color Urine Appearance Urine pH Ur Specific Schneider Urine Protein Urine Glucose (UA) Urine Ketones Urine Blood Urine Nitrite Urine Bilirubin Urine Urobilinogen Ur Leukocyte Esterase Urine WBC (Auto) Urine RBC (Auto) Urine Casts (Auto) U Epithel Cells (Auto) Urine Bacteria (Auto) Stool Occult Blood Salicylates 1.9 L Opiates Screen Methadone Screen Acetaminophen < 2.0 L Barbiturate Screen Phencyclidine Screen Ur Amphetamines Screen MDMA (Ecstasy) Screen Benzodiazepines Screen Cocaine Screen U Marijuana (THC) Screen Alcohol, Quantitative < 3.0 Blood Type Antibody Screen 08/30/18 08/30/18 08/30/18 00:35 00:58 01:25 WBC RBC Hgb Hct MCV MCH MCHC RDW Plt Count MPV Absolute Neuts (auto) Neutrophils % Lymphocytes % Monocytes % Eosinophils % Basophils % Nucleated RBC % PT with INR 12.70 INR 1.08 PTT (Actin FS) 26.1 VBG pH POC VBG pCO2 POC VBG pO2 VBG HCO3 VBG O2 Sat (Sonia) VBG Base Excess Sodium Potassium Chloride Carbon Dioxide Anion Gap BUN Creatinine Est GFR (CKD-EPI)AfAm Est GFR (CKD-EPI)NonAf Random Glucose Lactic Acid Calcium Magnesium Total Bilirubin AST ALT Alkaline Phosphatase Ammonia 41.60 H Creatine Kinase Creatine Kinase Index CK-MB (CK-2) Troponin I Total Protein Albumin TSH Serum , Qual Urine Color Urine Appearance Urine pH Ur Specific Schneider Urine Protein Urine Glucose (UA) Urine Ketones Urine Blood Urine Nitrite Urine Bilirubin Urine Urobilinogen Ur Leukocyte Esterase Urine WBC (Auto) Urine RBC (Auto) Urine Casts (Auto) U Epithel Cells (Auto) Urine Bacteria (Auto) Stool Occult Blood Negative Salicylates Opiates Screen Methadone Screen Acetaminophen Barbiturate Screen Phencyclidine Screen Ur Amphetamines Screen MDMA (Ecstasy) Screen Benzodiazepines Screen Cocaine Screen U Marijuana (THC) Screen Alcohol, Quantitative Blood Type Antibody Screen 08/30/18 08/30/18 08/30/18 01:36 01:36 01:36 WBC RBC Hgb Hct MCV MCH MCHC RDW Plt Count MPV Absolute Neuts (auto) Neutrophils % Lymphocytes % Monocytes % Eosinophils % Basophils % Nucleated RBC % PT with INR INR PTT (Actin FS) VBG pH POC VBG pCO2 POC VBG pO2 VBG HCO3 VBG O2 Sat (Sonia) VBG Base Excess Sodium Potassium Chloride Carbon Dioxide Anion Gap BUN Creatinine Est GFR (CKD-EPI)AfAm Est GFR (CKD-EPI)NonAf Random Glucose Lactic Acid 1.1 Calcium Magnesium Total Bilirubin AST ALT Alkaline Phosphatase Ammonia Creatine Kinase Creatine Kinase Index CK-MB (CK-2) Troponin I Total Protein Albumin TSH Serum , Qual Urine Color Yellow Urine Appearance Clear Urine pH 5.5 Ur Specific Schneider 1.018 Urine Protein 1+ H Urine Glucose (UA) Negative Urine Ketones Negative Urine Blood Negative Urine Nitrite Negative Urine Bilirubin Negative Urine Urobilinogen 1.0 Ur Leukocyte Esterase Negative Urine WBC (Auto) 1 Urine RBC (Auto) 2 Urine Casts (Auto) 16 U Epithel Cells (Auto) 2.4 Urine Bacteria (Auto) 2.7 Stool Occult Blood Salicylates Opiates Screen Negative Methadone Screen Negative Acetaminophen Barbiturate Screen Negative Phencyclidine Screen Negative Ur Amphetamines Screen Negative MDMA (Ecstasy) Screen Negative Benzodiazepines Screen Negative Cocaine Screen Negative U Marijuana (THC) Screen Negative Alcohol, Quantitative Blood Type Antibody Screen 08/30/18 01:36 WBC RBC Hgb Hct MCV MCH MCHC RDW Plt Count MPV Absolute Neuts (auto) Neutrophils % Lymphocytes % Monocytes % Eosinophils % Basophils % Nucleated RBC % PT with INR INR PTT (Actin FS) VBG pH 7.29 L POC VBG pCO2 42.8 POC VBG pO2 69.2 H VBG HCO3 20.0 L VBG O2 Sat (Sonia) 92.4 H VBG Base Excess -5.8 L Sodium Potassium Chloride Carbon Dioxide Anion Gap BUN Creatinine Est GFR (CKD-EPI)AfAm Est GFR (CKD-EPI)NonAf Random Glucose Lactic Acid Calcium Magnesium Total Bilirubin AST ALT Alkaline Phosphatase Ammonia Creatine Kinase Creatine Kinase Index CK-MB (CK-2) Troponin I Total Protein Albumin TSH Serum , Qual Urine Color Urine Appearance Urine pH Ur Specific Schneider Urine Protein Urine Glucose (UA) Urine Ketones Urine Blood Urine Nitrite Urine Bilirubin Urine Urobilinogen Ur Leukocyte Esterase Urine WBC (Auto) Urine RBC (Auto) Urine Casts (Auto) U Epithel Cells (Auto) Urine Bacteria (Auto) Stool Occult Blood Salicylates Opiates Screen Methadone Screen Acetaminophen Barbiturate Screen Phencyclidine Screen Ur Amphetamines Screen MDMA (Ecstasy) Screen Benzodiazepines Screen Cocaine Screen U Marijuana (THC) Screen Alcohol, Quantitative Blood Type Antibody Screen Active Medications Generic Name Dose Route Start Last Admin Trade Name Freq PRN Reason Stop Dose Admin Chlorhexidine Gluconate 1 applic 08/30/18 22:00 Hibiclens For Decolonization - TP HS ESTHER Dextrose/Sodium Chloride 1,000 mls @ 83 mls/hr 08/30/18 03:15 08/30/18 03:51 D5-1/2ns - IV 83 mls/hr ASDIR ESTHER Administration Levetiracetam 500 mg 08/30/18 22:00 Keppra Injection - IVPB BID ESTHER Mupirocin 1 applic 08/30/18 10:00 Bactroban Ointment (For Decolonization) - NS 09/04/18 09:59 BID ESTHER Ondansetron HCl 4 mg 08/30/18 00:05 08/30/18 00:13 Zofran Injection IVPUSH 4 mg Q4H PRN Administration NAUSEA AND/OR VOMITING for now When cleared from neurological standpoint, EGD. Discussed procedure with patient. Discussed potential risks of the procedure like but not limited to bleeding, perforation requiring surgery to repair, infection, sedation medication effects all of which could be potentially life threatening. She has agreed to the procedure. ASSESSMENT/PLAN: 37 yo F with PMHx of asthma and anxiety disorder BIBEMS after her preteen daughter found her on the floor and subsequently shaking with 2 episodes vomiting of red/brownish substance. AMS: Pt found on floor by daughter after a fall Daughter reported shaking and urinary incontinence Could be seizure- Head CT negative for bleed or mass Pt likely in post ictal state with confusion, rapid reversal likely in favor of seizure vs other causes appears to be back at baseline with improved memory of event Utox negative, Ammonia minimally elevated, salicylates, tylenol low UA negative for infection MRI brain w/wo contrast EEG to r/o seizure Neuro consulted, Zelda Seizure? No prior hx Keppra EEG to r/o seizure Neuro consulted, Zelda prolactin pending Vomiting/Hematemesis Unclear duration of the vomiting- pt reported different times Pt denies ETOH ingestion Ammonia level slightly elevated EMILIANO- R/O vasculitis Fecal occult negative Dr Bhat consulted Suggested r/o Porphyria H/H stable - No overt bleeding dc PPI gtt per GI and switch to Protonix 40mg PO BID When cleared from neurological standpoint, EGD. pt agrees Leukocytosis - resolved likely reactive LA 1.1, no evidence of sepsis at this time Sinus Tachycardia - currently NSR likely from recent vomiting/ retching/dehydration Improved with fluids R/O PE- possible s1, Q3T3 on EKG with enlarged R heart border D dimer, marginally elevated 537. do not suspect PE as pt tachy resolved w/ fluids and is no longer sxs denies sob and cp Asthma Does not appear in exacerbation Describes mild persistent asthma Anxiety disorder Per [facility] [place]- Ed was in touch with them, pt does not use meds for anxiety Had some tremors initially in ED Cont to monitor FEN D5 1/2 NS 83cc replete prn NPO ppx SCDs PPI Dispo pt is stable and can transfer to floor Visit type - Emergency Visit Emergency Visit: Yes ED Registration Date: 08/30/18 Care time: The patient presented to the Emergency Department on the above date and was hospitalized for further evaluation of their emergent condition. - New Patient This patient is new to me today: Yes Date on this admission: 08/30/18 - Critical Care Critical Care patient: Yes Total Critical Care Time (in minutes): 37 Critical Care Statement: The care of this patient involved high complexity decision making to prevent further life threatening deterioration of the patient 's condition and/or to evaluate & treat vital organ system(s) failure or risk of failure.
--- NOTE | 2018-08-30 08:29 | CON.GI ---
Consult Consult Specialty:: GI Referred by:: Hospitalist Service Reason for Consultation:: Hematemesis - History of Present Illness Chief Complaint: "I vomited blood" History of Present Illness: 37F admitted through [facility] ER for evaluation of altered mental status. Her daughter states that she heard her mother fall and when she tried to get up she fell again. On admission yesterday evening her pulse was 120 and was normotensive. She was also noted to be initially AAO x 2. Ms. Reardon denies associated headache, change in vision, fevers/chills, nausea, abdominal pain prior to the vomiting episodes. There has been no melena / rectal bleeding. She states that she takes Ibuprofen twice a month "when she has pain". She denies illicit drug use / alcohol use. There is no known h/o liver disease. She has never had an upper endoscopy or colonoscopy. There has been no bleeding since admission. - History Source History Provided By: Patient, Family Member Limitations to Obtaining History: No Limitations - Past Medical History Pulmonary: Yes: Asthma - Past Surgical History Past Surgical History: Yes: - Alcohol/Substance Use Hx Alcohol Use: No History of Substance Use: reports: None - Smoking History Smoking history: Current every day smoker Have you smoked in the past 12 months: No - Social History Usual Living Arrangement: Alone ADL: Independent History of Recent Travel: No Home Medications - Allergies Allergies/Adverse Reactions: Allergies Allergy/AdvReac Type Severity Reaction Status Date / Time No Allergy Information Allergy Verified 08/29/18 22:36 Available - Home Medications Home Medications: Ambulatory Orders Unobtainable 08/29/18 Family Disease History - Family Disease History Other Family History: No family history of colorectal cancer, liver disease, other GI malignancy Review of Systems - Review of Systems Constitutional: denies: Fever Cardiovascular: denies: Chest Pain Respiratory: denies: SOB Gastrointestinal: reports: Vomiting Blood. denies: Constipation, Diarrhea, Melena, Rectal Bleeding Physical Exam-GI Vital Signs: Vital Signs Temperature 97.8 F 08/30/18 06:13 Pulse Rate 76 08/30/18 06:13 Respiratory Rate 18 08/30/18 06:13 Blood Pressure 106/71 08/30/18 06:13 O2 Sat by Pulse Oximetry (%) 97 08/30/18 06:06 Constitutional: No: Calm Eyes: Yes: PERRL. No: Sclera Icterus Cardiovascular: No: Murmur Respiratory: Yes: CTA Bilaterally Gastrointestinal Inspection: Yes: Scars (pelvic surgical scar). No: Distention ...Auscultate: Yes: Normoactive Bowel Sounds ...Palpate: Yes: Soft. No: Hepatomegaly, Splenomegaly, Tenderness ...Percussion: No: Tympanitic ...Rectal Exam: Yes: Other (Pulmonologist present: No external lesions, no masses, light brown stool in rectal vault, guaiac negative) Edema: No (No LE edema) Neurological: Yes: Alert, Oriented (x 3). No: [facility] Labs: CBC, BMP 08/30/18 00:10 08/30/18 00:10 INR, PTT INR 1.08 (0.83-1.09) 08/30/18 01:25 Problem List - Problems (1) Hematemesis of unknown cause Assessment/Plan: No overt bleeding. BUN of 8 on admission not suggestive of significant ongoing GI bleed (hematemesis reported as going on the day prior to admission). No repeat labs this AM as of yet: Advise: D/C PPI drip CBC this AM Unclear significance of mildly elevated ammonia level in non-cirrhotic Protonix 40mg PO BID for now When cleared from neurological standpoint, EGD. Discussed procedure with patient. Discussed potential risks of the procedure like but not limited to bleeding, perforation requiring surgery to repair, infection, sedation medication effects all of which could be potentially life threatening. She has agreed to the procedure. Code(s): K92.0 - HEMATEMESIS
[2018-08-30 09:00] LABS: BASO % 0.6 % (0-2.0); EOS % 0.2 % (0-4.5); HEMATOCRIT 38.9 % (32.4-45.2); HEMOGLOBIN 12.9 GM/dL (10.7-15.3); LYMPH % 17.5 % (8-40); MCHC 33.2 g/dl (32.0-36.0); MEAN CELL VOLUME 84.4 fl (80-96); MEAN PLT VOLUME 9.1 fl (7.5-11.1); MONO % 4.7 % (3.8-10.2); PLATELET COUNT 244 K/MM3 (134-434); RBC 4.61 M/mm3 (3.60-5.2); RDW 14.3 % (11.6-15.6); WHITE BLOOD COUNT 9.1 K/mm3 (4.0-10.0)
[2018-08-30 09:15] LABS: INR 1.09 (0.83-1.09); PROTHROMBIN TIME (PATIENT) 12.9 SEC (9.7-13.0)
[2018-08-30 09:18] LABS: ACTIVATED PTT 33.4 SECONDS (25.2-36.5)
--- NOTE | 2018-08-30 09:19 | PN ---
Physical Exam: SUBJECTIVE: Patient seen and examined at bedside- no acute events overnight; patient states she is feeling well- she has not had anymore episodes of vomiting nor anymore tremulous occurrences; she doesn't remember falling at home preceding her coming to the hospital- she denies any CP/SOB/N/V fevers or chills OBJECTIVE: Vital Signs Period Temp Pulse Resp BP Sys/Campbell Pulse Ox Last 24 Hr 97.6 F-98.1 F 69-120 16-22 93-129/64-77 97-97 GENERAL: The patient is awake, alert, and fully oriented, in no acute distress. EYES:PEERLA; EOMI; no scleral icterus . NECK: no JVD; no lymphadenopathy LUNGS: CTA B.L; no rales, rhonchi or wheezing. HEART: Regular rate and rhythm, S1, S2 without murmur, rub or gallop. ABDOMEN: Soft; NT/ND +BS in all 4 quadrants EXTREMITIES: 2+ pulses, warm, well-perfused, no edema. NEUROLOGICAL: Cranial nerves II through XII grossly intact. Normal speech, no facial asymmetry; strength 5/5 B/L UE LE; sensation intact throughout PSYCH: Normal mood, normal affect. SKIN: Warm, dry, normal turgor, no rashes or lesions noted Laboratory Results - last 24 hr 08/30/18 08/30/18 08/30/18 00:09 00:10 00:10 WBC 14.6 H RBC 4.93 Hgb 13.6 Hct 41.3 MCV 83.9 MCH 27.7 MCHC 33.0 RDW 14.3 Plt Count 270 MPV 9.4 Absolute Neuts (auto) 12.9 H Neutrophils % 88.2 H Lymphocytes % 7.7 L Monocytes % 3.7 L Eosinophils % 0.1 Basophils % 0.3 Nucleated RBC % 0 PT with INR INR PTT (Actin FS) VBG pH POC VBG pCO2 POC VBG pO2 VBG HCO3 VBG O2 Sat (Sonia) VBG Base Excess Sodium 141 Potassium 4.0 Chloride 109 H Carbon Dioxide 21 Anion Gap 11 BUN 8.6 Creatinine 0.8 Est GFR (CKD-EPI)AfAm 107.64 Est GFR (CKD-EPI)NonAf 92.87 POC Glucometer Random Glucose 120 H Lactic Acid Calcium 7.9 L Magnesium Total Bilirubin 0.2 AST 17 ALT 24 Alkaline Phosphatase 73 Ammonia Creatine Kinase 156 Creatine Kinase Index 0.8 CK-MB (CK-2) 1.4 Troponin I < 0.02 Total Protein 6.9 Albumin 4.1 TSH 2.61 Serum , Qual Urine Color Urine Appearance Urine pH Ur Specific [place] Urine Protein Urine Glucose (UA) Urine Ketones Urine Blood Urine Nitrite Urine Bilirubin Urine Urobilinogen Ur Leukocyte Esterase Urine WBC (Auto) Urine RBC (Auto) Urine Casts (Auto) U Epithel Cells (Auto) Urine Bacteria (Auto) Stool Occult Blood Salicylates Opiates Screen Methadone Screen Acetaminophen Barbiturate Screen Phencyclidine Screen Ur Amphetamines Screen MDMA (Ecstasy) Screen Benzodiazepines Screen Cocaine Screen U Marijuana (THC) Screen Alcohol, Quantitative Blood Type O POSITIVE Antibody Screen Negative 08/30/18 08/30/18 08/30/18 00:10 00:10 00:10 WBC RBC Hgb Hct MCV MCH MCHC RDW Plt Count MPV Absolute Neuts (auto) Neutrophils % Lymphocytes % Monocytes % Eosinophils % Basophils % Nucleated RBC % PT with INR INR PTT (Actin FS) VBG pH POC VBG pCO2 POC VBG pO2 VBG HCO3 VBG O2 Sat (Sonia) VBG Base Excess Sodium Potassium Chloride Carbon Dioxide Anion Gap BUN Creatinine Est GFR (CKD-EPI)AfAm Est GFR (CKD-EPI)NonAf POC Glucometer Random Glucose Lactic Acid Calcium Magnesium 2.4 Total Bilirubin AST ALT Alkaline Phosphatase Ammonia Creatine Kinase Creatine Kinase Index CK-MB (CK-2) Troponin I Total Protein Albumin TSH Serum , Qual Negative Urine Color Urine Appearance Urine pH Ur Specific [place] Urine Protein Urine Glucose (UA) Urine Ketones Urine Blood Urine Nitrite Urine Bilirubin Urine Urobilinogen Ur Leukocyte Esterase Urine WBC (Auto) Urine RBC (Auto) Urine Casts (Auto) U Epithel Cells (Auto) Urine Bacteria (Auto) Stool Occult Blood Salicylates 1.9 L Opiates Screen Methadone Screen Acetaminophen < 2.0 L Barbiturate Screen Phencyclidine Screen Ur Amphetamines Screen MDMA (Ecstasy) Screen Benzodiazepines Screen Cocaine Screen U Marijuana (THC) Screen Alcohol, Quantitative < 3.0 Blood Type Antibody Screen 08/30/18 08/30/18 08/30/18 00:35 00:58 01:25 WBC RBC Hgb Hct MCV MCH MCHC RDW Plt Count MPV Absolute Neuts (auto) Neutrophils % Lymphocytes % Monocytes % Eosinophils % Basophils % Nucleated RBC % PT with INR 12.70 INR 1.08 PTT (Actin FS) 26.1 VBG pH POC VBG pCO2 POC VBG pO2 VBG HCO3 VBG O2 Sat (Sonia) VBG Base Excess Sodium Potassium Chloride Carbon Dioxide Anion Gap BUN Creatinine Est GFR (CKD-EPI)AfAm Est GFR (CKD-EPI)NonAf POC Glucometer Random Glucose Lactic Acid Calcium Magnesium Total Bilirubin AST ALT Alkaline Phosphatase Ammonia 41.60 H Creatine Kinase Creatine Kinase Index CK-MB (CK-2) Troponin I Total Protein Albumin TSH Serum , Qual Urine Color Urine Appearance Urine pH Ur Specific [place] Urine Protein Urine Glucose (UA) Urine Ketones Urine Blood Urine Nitrite Urine Bilirubin Urine Urobilinogen Ur Leukocyte Esterase Urine WBC (Auto) Urine RBC (Auto) Urine Casts (Auto) U Epithel Cells (Auto) Urine Bacteria (Auto) Stool Occult Blood Negative Salicylates Opiates Screen Methadone Screen Acetaminophen Barbiturate Screen Phencyclidine Screen Ur Amphetamines Screen MDMA (Ecstasy) Screen Benzodiazepines Screen Cocaine Screen U Marijuana (THC) Screen Alcohol, Quantitative Blood Type Antibody Screen 08/30/18 08/30/18 08/30/18 01:36 01:36 01:36 WBC RBC Hgb Hct MCV MCH MCHC RDW Plt Count MPV Absolute Neuts (auto) Neutrophils % Lymphocytes % Monocytes % Eosinophils % Basophils % Nucleated RBC % PT with INR INR PTT (Actin FS) VBG pH POC VBG pCO2 POC VBG pO2 VBG HCO3 VBG O2 Sat (Sonia) VBG Base Excess Sodium Potassium Chloride Carbon Dioxide Anion Gap BUN Creatinine Est GFR (CKD-EPI)AfAm Est GFR (CKD-EPI)NonAf POC Glucometer Random Glucose Lactic Acid 1.1 Calcium Magnesium Total Bilirubin AST ALT Alkaline Phosphatase Ammonia Creatine Kinase Creatine Kinase Index CK-MB (CK-2) Troponin I Total Protein Albumin TSH Serum , Qual Urine Color Yellow Urine Appearance Clear Urine pH 5.5 Ur Specific [place] 1.018 Urine Protein 1+ H Urine Glucose (UA) Negative Urine Ketones Negative Urine Blood Negative Urine Nitrite Negative Urine Bilirubin Negative Urine Urobilinogen 1.0 Ur Leukocyte Esterase Negative Urine WBC (Auto) 1 Urine RBC (Auto) 2 Urine Casts (Auto) 16 U Epithel Cells (Auto) 2.4 Urine Bacteria (Auto) 2.7 Stool Occult Blood Salicylates Opiates Screen Negative Methadone Screen Negative Acetaminophen Barbiturate Screen Negative Phencyclidine Screen Negative Ur Amphetamines Screen Negative MDMA (Ecstasy) Screen Negative Benzodiazepines Screen Negative Cocaine Screen Negative U Marijuana (THC) Screen Negative Alcohol, Quantitative Blood Type Antibody Screen 08/30/18 08/30/18 08/30/18 01:36 08:27 08:50 WBC 9.1 RBC 4.61 Hgb 12.9 Hct 38.9 MCV 84.4 MCH 28.0 MCHC 33.2 RDW 14.3 Plt Count 244 MPV 9.1 Absolute Neuts (auto) 7.0 Neutrophils % 77.0 Lymphocytes % 17.5 D Monocytes % 4.7 Eosinophils % 0.2 D Basophils % 0.6 Nucleated RBC % 0 PT with INR INR PTT (Actin FS) VBG pH 7.29 L POC VBG pCO2 42.8 POC VBG pO2 69.2 H VBG HCO3 20.0 L VBG O2 Sat (Sonia) 92.4 H VBG Base Excess -5.8 L Sodium Potassium Chloride Carbon Dioxide Anion Gap BUN Creatinine Est GFR (CKD-EPI)AfAm Est GFR (CKD-EPI)NonAf POC Glucometer 91 Random Glucose Lactic Acid Calcium Magnesium Total Bilirubin AST ALT Alkaline Phosphatase Ammonia Creatine Kinase Creatine Kinase Index CK-MB (CK-2) Troponin I Total Protein Albumin TSH Serum , Qual Urine Color Urine Appearance Urine pH Ur Specific [place] Urine Protein Urine Glucose (UA) Urine Ketones Urine Blood Urine Nitrite Urine Bilirubin Urine Urobilinogen Ur Leukocyte Esterase Urine WBC (Auto) Urine RBC (Auto) Urine Casts (Auto) U Epithel Cells (Auto) Urine Bacteria (Auto) Stool Occult Blood Salicylates Opiates Screen Methadone Screen Acetaminophen Barbiturate Screen Phencyclidine Screen Ur Amphetamines Screen MDMA (Ecstasy) Screen Benzodiazepines Screen Cocaine Screen U Marijuana (THC) Screen Alcohol, Quantitative Blood Type Antibody Screen 08/30/18 08:50 WBC RBC Hgb Hct MCV MCH MCHC RDW Plt Count MPV Absolute Neuts (auto) Neutrophils % Lymphocytes % Monocytes % Eosinophils % Basophils % Nucleated RBC % PT with INR 12.90 INR 1.09 PTT (Actin FS) 33.4 VBG pH POC VBG pCO2 POC VBG pO2 VBG HCO3 VBG O2 Sat (Sonia) VBG Base Excess Sodium Potassium Chloride Carbon Dioxide Anion Gap BUN Creatinine Est GFR (CKD-EPI)AfAm Est GFR (CKD-EPI)NonAf POC Glucometer Random Glucose Lactic Acid Calcium Magnesium Total Bilirubin AST ALT Alkaline Phosphatase Ammonia Creatine Kinase Creatine Kinase Index CK-MB (CK-2) Troponin I Total Protein Albumin TSH Serum , Qual Urine Color Urine Appearance Urine pH Ur Specific [place] Urine Protein Urine Glucose (UA) Urine Ketones Urine Blood Urine Nitrite Urine Bilirubin Urine Urobilinogen Ur Leukocyte Esterase Urine WBC (Auto) Urine RBC (Auto) Urine Casts (Auto) U Epithel Cells (Auto) Urine Bacteria (Auto) Stool Occult Blood Salicylates Opiates Screen Methadone Screen Acetaminophen Barbiturate Screen Phencyclidine Screen Ur Amphetamines Screen MDMA (Ecstasy) Screen Benzodiazepines Screen Cocaine Screen U Marijuana (THC) Screen Alcohol, Quantitative Blood Type Antibody Screen Active Medications Generic Name Dose Route Start Last Admin Trade Name Freq PRN Reason Stop Dose Admin Chlorhexidine Gluconate 1 applic 08/30/18 22:00 Hibiclens For Decolonization - TP HS ESTHER Dextrose/Sodium Chloride 1,000 mls @ 83 mls/hr 08/30/18 03:15 08/30/18 03:51 D5-1/2ns - IV 83 mls/hr ASDIR ESTHER Administration Levetiracetam 500 mg 08/30/18 22:00 Keppra Injection - IVPB BID ESTHER Mupirocin 1 applic 08/30/18 10:00 Bactroban Ointment (For Decolonization) - NS 09/04/18 09:59 BID ESTHER Ondansetron HCl 4 mg 08/30/18 00:05 08/30/18 00:13 Zofran Injection IVPUSH 4 mg Q4H PRN Administration NAUSEA AND/OR VOMITING ASSESSMENT/PLAN: 37 y/o female with PMH of asthma presented to the ED with altered mental status s/p fall and subsequently had an episode of hematemesis while in the ER #Neuro currently AOX 3; normal neuro exam no focal deficits -head CT showed no acute pathology -patient had ammonia level in the 40's upon arrival -brain MRI pending -neuro consulted -possibly 2/2 seizures? was started on Keppra (given loading dose and then 500 BID) -EEG ordered #GI patient had 1 episode of hematemesis in the ER; this was the first time this ever happened to her -patient no longer has had anymore episodes -CBC's have remained stable -GI consulted; Dr. Benjamin will perform endoscopy once cleared from neuro -Protonix 40 BID -monitor CBC's #Pulmonary patient has history of asthma -does not appear to be in exacerbation F/E/N d51/2NS@83mls/hr monitor electrolytes keep NPO until cleared DVT PPX: scds in light of hematemesis GI PPX: protonix 40 BID dispo: transfer to med-surg Problem List - Problems (1) Altered mental status, unspecified Code(s): R41.82 - ALTERED MENTAL STATUS, UNSPECIFIED (2) Hematemesis of unknown cause Code(s): K92.0 - HEMATEMESIS Visit type - Emergency Visit Emergency Visit: Yes ED Registration Date: 08/30/18 Care time: The patient presented to the Emergency Department on the above date and was hospitalized for further evaluation of their emergent condition. - New Patient This patient is new to me today: Yes Date on this admission: 08/30/18 - Critical Care Critical Care patient: Yes Total Critical Care Time (in minutes): 35 Critical Care Statement: The care of this patient involved high complexity decision making to prevent further life threatening deterioration of the patient 's condition and/or to evaluate & treat vital organ system(s) failure or risk of failure.
[2018-08-30 09:29] LABS: ALBUMIN 3.5 g/dl (3.4-5.0); BILIRUBIN,TOTAL 0.4 mg/dL (0.2-1); BLOOD UREA NITROGEN 3.5 mg/dL (7-18); CALCIUM 8.3 mg/dL (8.5-10.1); CREATININE 0.6 mg/dL (0.55-1.3); MAGNESIUM 2.5 mg/dL (1.8-2.4); PHOSPHOROUS 3.6 mg/dL (2.5-4.9); POTASSIUM 4.2 mmol/L (3.5-5.1); TOT PROT 6.2 g/dl (6.4-8.2)
[2018-08-30] MEDS ORDERED: MUPIROCIN 2% TOPICAL OINTMENT FOR DECOLONIZATION NS SCH ×2 (10:00)
[2018-08-30] MEDS ORDERED: PANTOPRAZOLE 40 MG TABLET (FP) PO SCH (10:00)
--- NOTE | 2018-08-30 11:31 | EKG ---
Test Reason : Blood Pressure : / mmHG Vent. Rate : 098 BPM Atrial Rate : 098 BPM P-R Int : 120 ms QRS Dur : 080 ms QT Int : 398 ms P-R-T Axes : 021 000 011 degrees QTc Int : 508 ms NORMAL SINUS RHYTHM INFERIOR INFARCT (CITED ON OR BEFORE 29-AUG-2018) NONSPECIFIC ST ABNORMALITY PROLONGED QT ABNORMAL ECG WHEN COMPARED WITH ECG OF 29-AUG-2018 22:38, NO SIGNIFICANT CHANGE WAS FOUND Confirmed by DOMINIQUE LEA MD ([id number]) on 08/30/2018 11:31:24 AM Referred By: Confirmed By:DOMINIQUE LEA MD
--- NOTE | 2018-08-30 11:33 | PN ---
Teaching Attending Note Name of Resident: Francheska Acosta ATTENDING PHYSICIAN STATEMENT I saw and evaluated the patient. I reviewed the resident's note and discussed the case with the resident. I agree with the resident's findings and plan as documented. SUBJECTIVE: Patient seen and examined in the ICU. Awake and alert. No further bleeding noted. No CP or SOB. No seizure activity noted. Intake & Output 08/27/18 08/28/18 08/29/18 08/30/18 23:59 23:59 23:59 23:59 Output Total 1900 Balance -1900 Weight 170 lb 159 lb 1 oz Last Vital Signs Temp Pulse Resp BP Pulse Ox 97.6 F 77 21 H 93/64 97 08/30/18 08:00 08/30/18 08:00 08/30/18 08:00 08/30/18 08:00 08/30/18 08:41 Active Medications Chlorhexidine Gluconate (Hibiclens For Decolonization -) 1 applic TP HS [facility] Dextrose/Sodium Chloride (D5-1/2ns -) 1,000 mls @ 83 mls/hr IV ASDIR [facility] Last Admin: 08/30/18 03:51 Dose: 83 mls/hr Levetiracetam (Keppra Injection -) 500 mg IVPB BID [facility] Mupirocin (Bactroban Ointment (For Decolonization) -) 1 applic NS BID [facility] Stop: 09/04/18 09:59 Last Admin: 08/30/18 10:05 Dose: 1 applic Ondansetron HCl (Zofran Injection) 4 mg IVPUSH Q4H PRN PRN Reason: NAUSEA AND/OR VOMITING Last Admin: 08/30/18 00:13 Dose: 4 mg Pantoprazole Sodium (Protonix -) 40 mg PO BID [facility] Last Admin: 08/30/18 10:06 Dose: 40 mg GENERAL: NAD, Awake, alert, and oriented, NAD HEENT: NC/AT, EOMI, BLAISE, sclera anicteric, R eye with conjunctival injections NECK: No JVD, soft, no TTP, no rash LUNGS: CTA bilaterally. No wheezes, and no crackles. No accessory muscle use. HEART: S1S2 regular, (-) murmur ABDOMEN: Soft, NT/ND, normoactive BS, no aortic or renal bruits, no celiac/SMA bruits, no guarding, no masses appreciated, no hepatomegaly and liver edge without nodularity. MUSCULOSKELETAL: No CVA tenderness. EXTREMITIES: 2+ DP pulses, warm, well-perfused. No calf tenderness. No peripheral edema. Cap refill <2sec NEUROLOGICAL: Non-focal PSYCHIATRIC: Cooperative. SKIN: Warm, dry, no rashes Laboratory Results 08/30/18 08/30/18 08/30/18 00:10 00:10 00:10 WBC 14.6 H RBC 4.93 Hgb 13.6 Hct 41.3 MCV 83.9 MCH 27.7 MCHC 33.0 RDW 14.3 Plt Count 270 MPV 9.4 Absolute Neuts (auto) 12.9 H Neutrophils % 88.2 H Lymphocytes % 7.7 L Monocytes % 3.7 L Eosinophils % 0.1 Basophils % 0.3 Nucleated RBC % 0 PT with INR INR PTT (Actin FS) VBG pH POC VBG pCO2 POC VBG pO2 VBG HCO3 VBG O2 Sat (Sonia) VBG Base Excess Sodium 141 Potassium 4.0 Chloride 109 H Carbon Dioxide 21 Anion Gap 11 BUN 8.6 Creatinine 0.8 Est GFR (CKD-EPI)AfAm 107.64 Est GFR (CKD-EPI)NonAf 92.87 Random Glucose 120 H Lactic Acid Calcium 7.9 L Total Bilirubin 0.2 AST 17 ALT 24 Alkaline Phosphatase 73 Ammonia Creatine Kinase 156 Creatine Kinase Index 0.8 CK-MB (CK-2) 1.4 Troponin I < 0.02 Total Protein 6.9 Albumin 4.1 TSH 2.61 Serum , Qual Negative Stool Occult Blood Salicylates Opiates Screen Methadone Screen Acetaminophen Barbiturate Screen Phencyclidine Screen Ur Amphetamines Screen MDMA (Ecstasy) Screen Benzodiazepines Screen Cocaine Screen U Marijuana (THC) Screen 08/30/18 08/30/18 08/30/18 00:10 00:35 00:58 WBC RBC Hgb Hct MCV MCH MCHC RDW Plt Count MPV Absolute Neuts (auto) Neutrophils % Lymphocytes % Monocytes % Eosinophils % Basophils % Nucleated RBC % PT with INR INR PTT (Actin FS) VBG pH POC VBG pCO2 POC VBG pO2 VBG HCO3 VBG O2 Sat (Sonia) VBG Base Excess Sodium Potassium Chloride Carbon Dioxide Anion Gap BUN Creatinine Est GFR (CKD-EPI)AfAm Est GFR (CKD-EPI)NonAf Random Glucose Lactic Acid Calcium Total Bilirubin AST ALT Alkaline Phosphatase Ammonia 41.60 H Creatine Kinase Creatine Kinase Index CK-MB (CK-2) Troponin I Total Protein Albumin TSH Serum , Qual Stool Occult Blood Negative Salicylates 1.9 L Opiates Screen Methadone Screen Acetaminophen < 2.0 L Barbiturate Screen Phencyclidine Screen Ur Amphetamines Screen MDMA (Ecstasy) Screen Benzodiazepines Screen Cocaine Screen U Marijuana (THC) Screen 08/30/18 08/30/18 08/30/18 01:25 01:36 01:36 WBC RBC Hgb Hct MCV MCH MCHC RDW Plt Count MPV Absolute Neuts (auto) Neutrophils % Lymphocytes % Monocytes % Eosinophils % Basophils % Nucleated RBC % PT with INR 12.70 INR 1.08 PTT (Actin FS) 26.1 VBG pH POC VBG pCO2 POC VBG pO2 VBG HCO3 VBG O2 Sat (Sonia) VBG Base Excess Sodium Potassium Chloride Carbon Dioxide Anion Gap BUN Creatinine Est GFR (CKD-EPI)AfAm Est GFR (CKD-EPI)NonAf Random Glucose Lactic Acid 1.1 Calcium Total Bilirubin AST ALT Alkaline Phosphatase Ammonia Creatine Kinase Creatine Kinase Index CK-MB (CK-2) Troponin I Total Protein Albumin TSH Serum , Qual Stool Occult Blood Salicylates Opiates Screen Negative Methadone Screen Negative Acetaminophen Barbiturate Screen Negative Phencyclidine Screen Negative Ur Amphetamines Screen Negative MDMA (Ecstasy) Screen Negative Benzodiazepines Screen Negative Cocaine Screen Negative U Marijuana (THC) Screen Negative 08/30/18 01:36 WBC RBC Hgb Hct MCV MCH MCHC RDW Plt Count MPV Absolute Neuts (auto) Neutrophils % Lymphocytes % Monocytes % Eosinophils % Basophils % Nucleated RBC % PT with INR INR PTT (Actin FS) VBG pH 7.29 L POC VBG pCO2 42.8 POC VBG pO2 69.2 H VBG HCO3 20.0 L VBG O2 Sat (Sonia) 92.4 H VBG Base Excess -5.8 L Sodium Potassium Chloride Carbon Dioxide Anion Gap BUN Creatinine Est GFR (CKD-EPI)AfAm Est GFR (CKD-EPI)NonAf Random Glucose Lactic Acid Calcium Total Bilirubin AST ALT Alkaline Phosphatase Ammonia Creatine Kinase Creatine Kinase Index CK-MB (CK-2) Troponin I Total Protein Albumin TSH Serum , Qual Stool Occult Blood Salicylates Opiates Screen Methadone Screen Acetaminophen Barbiturate Screen Phencyclidine Screen Ur Amphetamines Screen MDMA (Ecstasy) Screen Benzodiazepines Screen Cocaine Screen U Marijuana (THC) Screen ASSESSMENT/PLAN: Resolving AMS / Suspected Metabolic encephalopathy: etiology to be determined R/O Hematemesis Leukocytosis Resolving Acidemia GI workup ongoing Normal transfusion thresholds Follow Serology workup PO as tolerated IVF PPI Floor Dr Palomares
--- NOTE | 2018-08-30 11:34 | EKG ---
Test Reason : Blood Pressure : / mmHG Vent. Rate : 111 BPM Atrial Rate : 111 BPM P-R Int : 124 ms QRS Dur : 082 ms QT Int : 358 ms P-R-T Axes : 031 014 017 degrees QTc Int : 486 ms SINUS TACHYCARDIA POSSIBLE LEFT ATRIAL ENLARGEMENT POSSIBLE INFERIOR INFARCT , AGE UNDETERMINED NONSPECIFIC ST ABNORMALITY ABNORMAL ECG NO PREVIOUS ECGS AVAILABLE Confirmed by DOMINIQUE LEA MD ([id number]) on 08/30/2018 11:34:09 AM Referred By: Confirmed By:DOMINIQUE LEA MD
--- NOTE | 2018-08-30 14:36 | CON.NEURO ---
Consult Consult Specialty:: Zelda Referred by:: ER - History of Present Illness History of Present Illness: 37-year-old right-handed female patient with history of bronchial asthma and anxiety was found yesterday last night by her daughter on the floor with questionable shaking episode question of seizure-like activity no report of any recent travel no report of any recent head trauma patient herself is a poor historian patient came into the emergency room CAT scan of the head was done admitted to a medical ICU since admission to the medical ICU with no report of any seizure-like activity. - History Source History Provided By: Patient, Medical Record Limitations to Obtaining History: Clinical Condition - Past Medical History Pulmonary: Yes: Asthma - Past Surgical History Past Surgical History: Yes: - Alcohol/Substance Use Hx Alcohol Use: No History of Substance Use: reports: None - Smoking History Smoking history: Current every day smoker Have you smoked in the past 12 months: No - Social History Usual Living Arrangement: Alone ADL: Independent History of Recent Travel: No Home Medications - Allergies Allergies/Adverse Reactions: Allergies Allergy/AdvReac Type Severity Reaction Status Date / Time No Allergy Information Allergy Verified 08/29/18 22:36 Available - Home Medications Home Medications: Ambulatory Orders Acetaminophen [Tylenol 8 Hour] 650 mg PO PRN 08/30/18 Clotrimazole [Clotrimazole AF] 28 gm TP PRN 08/30/18 Ketoconazole 2% Shampoo [Nizoral 2% Shampoo -] 1 applic TP DAILY 08/30/18 Family Disease History - Family Disease History Family History: Unable to Obtain Other Family History: No family history of colorectal cancer, liver disease, other GI malignancy Review of Systems - Review of Systems Constitutional: reports: No Symptoms Eyes: reports: No Symptoms Physical Exam-Neuro Vital Signs: Vital Signs Temperature 98.1 F 08/30/18 10:00 Pulse Rate 70 08/30/18 12:00 Respiratory Rate 22 H 08/30/18 12:00 Blood Pressure 95/72 08/30/18 12:00 O2 Sat by Pulse Oximetry (%) 97 08/30/18 08:41 Constitutional: Yes: Well Nourished Neck: Yes: WNL Cardiovascular: Yes: WNL Labs: CBC, BMP 08/30/18 08:50 08/30/18 08:50 INR, PTT INR 1.09 (0.83-1.09) 08/30/18 08:50 Imaging - Results Cat Scan: Image Reviewed Problem List - Problems (1) Altered mental status, unspecified Assessment/Plan: questionable new onset seizure activity 1. Seizure precautions. 2. MRI of the brain with seizure protocol. 3. EEG. 4. No antiseizure medication. 5. Ativan when necessary seizure. 6. Blood work Code(s): R41.82 - ALTERED MENTAL STATUS, UNSPECIFIED
[2018-08-30 16:19] VITALS: BP 103/81; PULSE 71; TEMP 98.6
--- NOTE | 2018-08-30 17:25 | HOSP ---
Subjective - Review of Symptoms Events since last encounter: Patient wanting to leave AMA because she wanted to smoke a cigarette. Risks of leaving AMA explained to the patient, including possible . Patient left, despite explanation of risks. Physical Examination Vital Signs: Vital Signs Temperature 98.6 F 08/30/18 16:00 Pulse Rate 71 08/30/18 16:00 Respiratory Rate 21 H 08/30/18 16:00 Blood Pressure 103/81 08/30/18 16:00 O2 Sat by Pulse Oximetry (%) 97 08/30/18 08:41 Labs: CBC, BMP 08/30/18 08:50 08/30/18 08:50
--- NOTE | 2018-08-30 17:59 | PN ---
Teaching Attending Note Name of Resident: Efrem Montoya ATTENDING PHYSICIAN STATEMENT I saw and evaluated the patient. I reviewed the resident's note and discussed the case with the resident. I agree with the resident's findings and plan as documented. SUBJECTIVE: Seen and examined at bedside this morning. Patient was sleeping and daughter sleeping bedside. No further seizure activity overnight. No other complaints OBJECTIVE: Vital Signs - 24 hr 08/29/18 08/30/18 08/30/18 22:33 04:24 06:00 Temperature 98.1 F 97.8 F Pulse Rate 120 H 76 Pulse Rate [ 69 Right Brachial] Respiratory 16 22 H 18 Rate Blood Pressure 129/72 108/77 Blood Pressure 127/77 [Right Arm] O2 Sat by Pulse 97 97 Oximetry (%) 08/30/18 08/30/18 08/30/18 06:06 06:13 08:00 Temperature 97.8 F 97.6 F Pulse Rate 76 77 Pulse Rate [ Right Brachial] Respiratory 22 H 18 21 H Rate Blood Pressure 106/71 93/64 Blood Pressure [Right Arm] O2 Sat by Pulse 97 Oximetry (%) 08/30/18 08/30/18 08/30/18 08:41 10:00 12:00 Temperature 98.1 F Pulse Rate 71 70 Pulse Rate [ Right Brachial] Respiratory 24 H 22 H Rate Blood Pressure 97/73 95/72 Blood Pressure [Right Arm] O2 Sat by Pulse 97 Oximetry (%) 08/30/18 08/30/18 14:00 16:00 Temperature 98.2 F 98.6 F Pulse Rate 64 71 Pulse Rate [ Right Brachial] Respiratory 23 H 21 H Rate Blood Pressure 93/72 103/81 Blood Pressure [Right Arm] O2 Sat by Pulse Oximetry (%) General: NAD CVS: s1s2, RRR Lungs: CTA b/l, unlabored Abd: soft, nt/nd, nabs Ext: no edema Psych: strange affect, doesn't make eye contact Laboratory Results - last 24 hr 08/30/18 08/30/18 08/30/18 00:09 00:10 00:10 WBC 14.6 H RBC 4.93 Hgb 13.6 Hct 41.3 MCV 83.9 MCH 27.7 MCHC 33.0 RDW 14.3 Plt Count 270 MPV 9.4 Absolute Neuts (auto) 12.9 H Neutrophils % 88.2 H Lymphocytes % 7.7 L Monocytes % 3.7 L Eosinophils % 0.1 Basophils % 0.3 Nucleated RBC % 0 ESR PT with INR INR PTT (Actin FS) D-Dimer VBG pH POC VBG pCO2 POC VBG pO2 VBG HCO3 VBG O2 Sat (Sonia) VBG Base Excess Sodium 141 Potassium 4.0 Chloride 109 H Carbon Dioxide 21 Anion Gap 11 BUN 8.6 Creatinine 0.8 Est GFR (CKD-EPI)AfAm 107.64 Est GFR (CKD-EPI)NonAf 92.87 POC Glucometer Random Glucose 120 H Lactic Acid Calcium 7.9 L Phosphorus Magnesium Total Bilirubin 0.2 AST 17 ALT 24 Alkaline Phosphatase 73 Ammonia Creatine Kinase 156 Creatine Kinase Index 0.8 CK-MB (CK-2) 1.4 Troponin I < 0.02 C-Reactive Protein Total Protein 6.9 Albumin 4.1 Lipase TSH 2.61 Serum , Qual Urine Color Urine Appearance Urine pH Ur Specific [place] Urine Protein Urine Glucose (UA) Urine Ketones Urine Blood Urine Nitrite Urine Bilirubin Urine Urobilinogen Ur Leukocyte Esterase Urine WBC (Auto) Urine RBC (Auto) Urine Casts (Auto) U Epithel Cells (Auto) Urine Bacteria (Auto) Stool Occult Blood Salicylates Opiates Screen Methadone Screen Acetaminophen Barbiturate Screen Phencyclidine Screen Ur Amphetamines Screen MDMA (Ecstasy) Screen Benzodiazepines Screen Cocaine Screen U Marijuana (THC) Screen Alcohol, Quantitative Blood Type O POSITIVE Antibody Screen Negative 08/30/18 08/30/18 08/30/18 00:10 00:10 00:10 WBC RBC Hgb Hct MCV MCH MCHC RDW Plt Count MPV Absolute Neuts (auto) Neutrophils % Lymphocytes % Monocytes % Eosinophils % Basophils % Nucleated RBC % ESR PT with INR INR PTT (Actin FS) D-Dimer VBG pH POC VBG pCO2 POC VBG pO2 VBG HCO3 VBG O2 Sat (Sonia) VBG Base Excess Sodium Potassium Chloride Carbon Dioxide Anion Gap BUN Creatinine Est GFR (CKD-EPI)AfAm Est GFR (CKD-EPI)NonAf POC Glucometer Random Glucose Lactic Acid Calcium Phosphorus Magnesium 2.4 Total Bilirubin AST ALT Alkaline Phosphatase Ammonia Creatine Kinase Creatine Kinase Index CK-MB (CK-2) Troponin I C-Reactive Protein Total Protein Albumin Lipase TSH Serum , Qual Negative Urine Color Urine Appearance Urine pH Ur Specific [place] Urine Protein Urine Glucose (UA) Urine Ketones Urine Blood Urine Nitrite Urine Bilirubin Urine Urobilinogen Ur Leukocyte Esterase Urine WBC (Auto) Urine RBC (Auto) Urine Casts (Auto) U Epithel Cells (Auto) Urine Bacteria (Auto) Stool Occult Blood Salicylates 1.9 L Opiates Screen Methadone Screen Acetaminophen < 2.0 L Barbiturate Screen Phencyclidine Screen Ur Amphetamines Screen MDMA (Ecstasy) Screen Benzodiazepines Screen Cocaine Screen U Marijuana (THC) Screen Alcohol, Quantitative < 3.0 Blood Type Antibody Screen 08/30/18 08/30/18 08/30/18 00:35 00:58 01:25 WBC RBC Hgb Hct MCV MCH MCHC RDW Plt Count MPV Absolute Neuts (auto) Neutrophils % Lymphocytes % Monocytes % Eosinophils % Basophils % Nucleated RBC % ESR PT with INR 12.70 INR 1.08 PTT (Actin FS) 26.1 D-Dimer VBG pH POC VBG pCO2 POC VBG pO2 VBG HCO3 VBG O2 Sat (Sonia) VBG Base Excess Sodium Potassium Chloride Carbon Dioxide Anion Gap BUN Creatinine Est GFR (CKD-EPI)AfAm Est GFR (CKD-EPI)NonAf POC Glucometer Random Glucose Lactic Acid Calcium Phosphorus Magnesium Total Bilirubin AST ALT Alkaline Phosphatase Ammonia 41.60 H Creatine Kinase Creatine Kinase Index CK-MB (CK-2) Troponin I C-Reactive Protein Total Protein Albumin Lipase TSH Serum , Qual Urine Color Urine Appearance Urine pH Ur Specific [place] Urine Protein Urine Glucose (UA) Urine Ketones Urine Blood Urine Nitrite Urine Bilirubin Urine Urobilinogen Ur Leukocyte Esterase Urine WBC (Auto) Urine RBC (Auto) Urine Casts (Auto) U Epithel Cells (Auto) Urine Bacteria (Auto) Stool Occult Blood Negative Salicylates Opiates Screen Methadone Screen Acetaminophen Barbiturate Screen Phencyclidine Screen Ur Amphetamines Screen MDMA (Ecstasy) Screen Benzodiazepines Screen Cocaine Screen U Marijuana (THC) Screen Alcohol, Quantitative Blood Type Antibody Screen 08/30/18 08/30/18 08/30/18 01:36 01:36 01:36 WBC RBC Hgb Hct MCV MCH MCHC RDW Plt Count MPV Absolute Neuts (auto) Neutrophils % Lymphocytes % Monocytes % Eosinophils % Basophils % Nucleated RBC % ESR PT with INR INR PTT (Actin FS) D-Dimer VBG pH POC VBG pCO2 POC VBG pO2 VBG HCO3 VBG O2 Sat (Sonia) VBG Base Excess Sodium Potassium Chloride Carbon Dioxide Anion Gap BUN Creatinine Est GFR (CKD-EPI)AfAm Est GFR (CKD-EPI)NonAf POC Glucometer Random Glucose Lactic Acid Calcium Phosphorus Magnesium Total Bilirubin AST ALT Alkaline Phosphatase Ammonia Creatine Kinase Creatine Kinase Index CK-MB (CK-2) Troponin I C-Reactive Protein Total Protein Albumin Lipase 114 TSH Serum , Qual Urine Color Yellow Urine Appearance Clear Urine pH 5.5 Ur Specific [place] 1.018 Urine Protein 1+ H Urine Glucose (UA) Negative Urine Ketones Negative Urine Blood Negative Urine Nitrite Negative Urine Bilirubin Negative Urine Urobilinogen 1.0 Ur Leukocyte Esterase Negative Urine WBC (Auto) 1 Urine RBC (Auto) 2 Urine Casts (Auto) 16 U Epithel Cells (Auto) 2.4 Urine Bacteria (Auto) 2.7 Stool Occult Blood Salicylates Opiates Screen Negative Methadone Screen Negative Acetaminophen Barbiturate Screen Negative Phencyclidine Screen Negative Ur Amphetamines Screen Negative MDMA (Ecstasy) Screen Negative Benzodiazepines Screen Negative Cocaine Screen Negative U Marijuana (THC) Screen Negative Alcohol, Quantitative Blood Type Antibody Screen 08/30/18 08/30/18 08/30/18 01:36 01:36 08:27 WBC RBC Hgb Hct MCV MCH MCHC RDW Plt Count MPV Absolute Neuts (auto) Neutrophils % Lymphocytes % Monocytes % Eosinophils % Basophils % Nucleated RBC % ESR PT with INR INR PTT (Actin FS) D-Dimer VBG pH 7.29 L POC VBG pCO2 42.8 POC VBG pO2 69.2 H VBG HCO3 20.0 L VBG O2 Sat (Sonia) 92.4 H VBG Base Excess -5.8 L Sodium Potassium Chloride Carbon Dioxide Anion Gap BUN Creatinine Est GFR (CKD-EPI)AfAm Est GFR (CKD-EPI)NonAf POC Glucometer 91 Random Glucose Lactic Acid 1.1 Calcium Phosphorus Magnesium Total Bilirubin AST ALT Alkaline Phosphatase Ammonia Creatine Kinase Creatine Kinase Index CK-MB (CK-2) Troponin I C-Reactive Protein Total Protein Albumin Lipase TSH Serum , Qual Urine Color Urine Appearance Urine pH Ur Specific [place] Urine Protein Urine Glucose (UA) Urine Ketones Urine Blood Urine Nitrite Urine Bilirubin Urine Urobilinogen Ur Leukocyte Esterase Urine WBC (Auto) Urine RBC (Auto) Urine Casts (Auto) U Epithel Cells (Auto) Urine Bacteria (Auto) Stool Occult Blood Salicylates Opiates Screen Methadone Screen Acetaminophen Barbiturate Screen Phencyclidine Screen Ur Amphetamines Screen MDMA (Ecstasy) Screen Benzodiazepines Screen Cocaine Screen U Marijuana (THC) Screen Alcohol, Quantitative Blood Type Antibody Screen 08/30/18 08/30/18 08/30/18 08:50 08:50 08:50 WBC 9.1 RBC 4.61 Hgb 12.9 Hct 38.9 MCV 84.4 MCH 28.0 MCHC 33.2 RDW 14.3 Plt Count 244 MPV 9.1 Absolute Neuts (auto) 7.0 Neutrophils % 77.0 Lymphocytes % 17.5 D Monocytes % 4.7 Eosinophils % 0.2 D Basophils % 0.6 Nucleated RBC % 0 ESR PT with INR 12.90 INR 1.09 PTT (Actin FS) 33.4 D-Dimer VBG pH POC VBG pCO2 POC VBG pO2 VBG HCO3 VBG O2 Sat (Sonia) VBG Base Excess Sodium 142 Potassium 4.2 Chloride 112 H Carbon Dioxide 25 Anion Gap 5 L BUN 3.5 L Creatinine 0.6 Est GFR (CKD-EPI)AfAm 133.07 Est GFR (CKD-EPI)NonAf 114.82 POC Glucometer Random Glucose 79 Lactic Acid Calcium 8.3 L Phosphorus 3.6 Magnesium 2.5 H Total Bilirubin 0.4 AST 15 ALT 22 Alkaline Phosphatase 69 Ammonia Creatine Kinase Creatine Kinase Index CK-MB (CK-2) Troponin I C-Reactive Protein 0.9 H Total Protein 6.2 L Albumin 3.5 Lipase 107 TSH Serum , Qual Urine Color Urine Appearance Urine pH Ur Specific [place] Urine Protein Urine Glucose (UA) Urine Ketones Urine Blood Urine Nitrite Urine Bilirubin Urine Urobilinogen Ur Leukocyte Esterase Urine WBC (Auto) Urine RBC (Auto) Urine Casts (Auto) U Epithel Cells (Auto) Urine Bacteria (Auto) Stool Occult Blood Salicylates Opiates Screen Methadone Screen Acetaminophen Barbiturate Screen Phencyclidine Screen Ur Amphetamines Screen MDMA (Ecstasy) Screen Benzodiazepines Screen Cocaine Screen U Marijuana (THC) Screen Alcohol, Quantitative Blood Type Antibody Screen 08/30/18 08/30/18 08/30/18 08:50 08:50 08:50 WBC RBC Hgb Hct MCV MCH MCHC RDW Plt Count MPV Absolute Neuts (auto) Neutrophils % Lymphocytes % Monocytes % Eosinophils % Basophils % Nucleated RBC % ESR 7 PT with INR INR PTT (Actin FS) D-Dimer 537 H VBG pH POC VBG pCO2 POC VBG pO2 VBG HCO3 VBG O2 Sat (Sonia) VBG Base Excess Sodium Potassium Chloride Carbon Dioxide Anion Gap BUN Creatinine Est GFR (CKD-EPI)AfAm Est GFR (CKD-EPI)NonAf POC Glucometer Random Glucose Lactic Acid Calcium Phosphorus Magnesium Total Bilirubin AST ALT Alkaline Phosphatase Ammonia Creatine Kinase Creatine Kinase Index CK-MB (CK-2) Troponin I C-Reactive Protein 0.8 H Total Protein Albumin Lipase TSH Serum , Qual Urine Color Urine Appearance Urine pH Ur Specific [place] Urine Protein Urine Glucose (UA) Urine Ketones Urine Blood Urine Nitrite Urine Bilirubin Urine Urobilinogen Ur Leukocyte Esterase Urine WBC (Auto) Urine RBC (Auto) Urine Casts (Auto) U Epithel Cells (Auto) Urine Bacteria (Auto) Stool Occult Blood Salicylates Opiates Screen Methadone Screen Acetaminophen Barbiturate Screen Phencyclidine Screen Ur Amphetamines Screen MDMA (Ecstasy) Screen Benzodiazepines Screen Cocaine Screen U Marijuana (THC) Screen Alcohol, Quantitative Blood Type Antibody Screen Home Medication List Medication Instructions Recorded Confirmed Type Acetaminophen [Tylenol 8 Hour] 650 mg PO PRN 08/30/18 08/30/18 History Clotrimazole [Clotrimazole AF] 28 gm TP PRN 08/30/18 08/30/18 History Ketoconazole 2% Shampoo [Nizoral 1 applic TP DAILY 08/30/18 08/30/18 History 2% Shampoo -] Active Medications Generic Name Dose Route Start Last Admin Trade Name Freq PRN Reason Stop Dose Admin Chlorhexidine Gluconate 1 applic 08/30/18 22:00 Hibiclens For Decolonization - TP HS ESTHER Dextrose/Sodium Chloride 1,000 mls @ 83 mls/hr 08/30/18 03:15 08/30/18 03:51 D5-1/2ns - IV 83 mls/hr ASDIR ESTHER Administration Levetiracetam 500 mg 08/30/18 22:00 Keppra Injection - IVPB BID ESTHER Mupirocin 1 applic 08/30/18 10:00 08/30/18 10:05 Bactroban Ointment (For Decolonization) - NS 09/04/18 09:59 1 applic BID ESTHER Administration Ondansetron HCl 4 mg 08/30/18 00:05 08/30/18 00:13 Zofran Injection IVPUSH 4 mg Q4H PRN Administration NAUSEA AND/OR VOMITING Pantoprazole Sodium 40 mg 08/30/18 10:00 06/28/19 10:06 Protonix - PO 40 mg BID ESTHER Administration ASSESSMENT AND PLAN: 37 year old female with PMHx of asthma and anxiety disorder comes to ED after her preteen daughter found her on the floor and subsequently shaking with 2 episodes and vomiting of red/brownish substance AMS-unclear etiology? possibly seizure vs pseudoseizure -toxicology clean -on keppra prophylactically -MRI and EEG ordered -patient wants to leave AMA, was evaluated by resident and forms were filled -she understands risks of leaving AMA including and accepts -neuro was consulted Vomiting/Hematemesis -h/h stable -no further episodes while in hospital -GI following recommended EGD Asthma -stable
[2018-08-30] MEDS ORDERED: levETIRAcetam 500 MG/5 ML INJECTION VIAL IVPB SCH (22:00)
[2018-08-30] MEDS ORDERED: CHLORHEXIDINE GLUCONATE 4% CLEANSER FOR DECOLONIZATION TP SCH ×2 (22:00)
== END 2018-08-30 17:15 | disposition left against medical advice (07) | DRG 53 ==
LOC: JER 22:25 → JERBED 08-30 01:36 → JICU 08-30 05:02
PROVIDERS: ADMIT Internal Medicine; ATTEND Internal Medicine
DX: R56.9 Unspecified convulsions (principal); J45.30 Mild persistent asthma, uncomplicated; F41.9 Anxiety disorder, unspecified; F17.210 Nicotine dependence, cigarettes, uncomplicated; D72.829 Elevated white blood cell count, unspecified; R00.0 Tachycardia, unspecified; E87.2 Acidosis; G93.41 Metabolic encephalopathy; K92.0 Hematemesis; E83.51 Hypocalcemia
CPT/HCPCS: 36415; 70450-TC; 70553-TC; 71045-TC-FY; 80053; 80307; 81003; 82140; 82272; 82550; 82553; 82803; 82962; 83605; 83690; 83735; 84100; 84146; 84443; 84484; 84703; 85025; 85379; 85610; 85651; 85730; 86038; 86140; 86850; 86900; 86901; 87040; 93005; 93010; 99285-25; A9579

== ENCOUNTER 2021-10-09 21:47 | Emergency (ER) | payer OTHER ==
[2021-10-09 21:51] VITALS: RESP 20; BMI 30.9
[2021-10-09 23:30] VITALS: TEMP 99.3
[2021-10-09 23:36] LABS: BASO % 0.9 % (0-2.0); EOS % 0.5 % (0-4.5); HEMATOCRIT 42.4 % (32.4-45.2); HEMOGLOBIN 14.2 GM/dL (10.7-15.3); LYMPH % 13.1 % (8-40); MCH 26.4 pg (25.7-33.7); MCHC 33.4 g/dl (32.0-36.0); MEAN CELL VOLUME 78.9 fl (80-96); MEAN PLT VOLUME 8.8 fl (7.5-11.1); MONO % 5.2 % (3.8-10.2); NEUT % 80.3 % (42.8-82.8); PLATELET COUNT 283 10^3/uL (134-434); RBC 5.38 M/mm3 (3.60-5.2); WHITE BLOOD COUNT 11.8 K/mm3 (4.0-10.0)
[2021-10-09 23:38] LABS: EPI CELLS 11 /uL (0-25.1); HYALINE CASTS 1 /uL (0-3.1); PH,URINE 5.5 (5.0-8.0); URINE APPEARANCE CLEAR; URINE BACTERIA 213 /uL (0-1359); URINE BILIRUBIN NEGATIVE (NEGATIVE); URINE COLOR YELLOW; URINE GLUCOSE (UA) NEGATIVE (NEGATIVE); URINE KETONE TRACE (NEGATIVE); URINE LEUK ESTERASE NEGATIVE (NEGATIVE); URINE NITRITE NEGATIVE (NEGATIVE); URINE PROTEIN 1+ (NEGATIVE); URINE RBC 6 /uL (0-23.9); URINE WBC 12 /uL (0-25.8)
[2021-10-09] MEDS ORDERED: SODIUM CHLORIDE 0.9% 500 ML INFUS.BAG IV ONE (23:41)
[2021-10-09 23:54] LABS: CHLORIDE 105 mmol/L (98-107); SODIUM 139 mmol/L (136-145)
[2021-10-09 23:56] LABS: ANION GAP 8 MMOL/L (8-16); BLOOD UREA NITROGEN 11.6 mg/dL (7-18); CALCIUM 8.5 mg/dL (8.5-10.1); CO2 25 mmol/L (21-32); GLUCOSE,RANDOM 95 mg/dL (74-106)
[2021-10-09 23:57] LABS: ALBUMIN 4.7 g/dl (3.4-5.0)
[2021-10-10] LABS: CREATININE 0.7 mg/dL (0.55-1.3); SGOT/AST 31 U/L (15-37); SGPT/ALT 32 U/L (13-61)
[2021-10-10 00:01] LABS: TOT PROT 7.5 g/dl (6.4-8.2)
[2021-10-10 00:02] LABS: ALK PHOS 81 U/L (45-117)
[2021-10-10] MEDS ORDERED: LORazepam 2 MG TABLET PO ONE (00:05)
[2021-10-10 00:14] VITALS: BP 124/94
[2021-10-10 00:39] LABS: BILIRUBIN,TOTAL 0.6 mg/dL (0.2-1)
[2021-10-10] MEDS ORDERED: LORazepam 1 MG TABLET ONE (01:03)
[2021-10-10 01:11] VITALS: PULSE 99
== END 2021-10-10 01:25 | disposition home or self-care (01) ==
LOC: JER 21:47
DX: R00.0 Tachycardia, unspecified (principal); F41.9 Anxiety disorder, unspecified
CPT/HCPCS: 36415; 71046-TC-FY; 80053; 81003; 84443; 84484; 84703; 85025; 93005; 93010; 99285-25; C9803-CS; U0003; U0005

== ENCOUNTER 2021-10-15 23:08 | Emergency (ER) | payer OTHER ==
[2021-10-15] MEDS ORDERED: ALPRAZolam 1 MG TABLET PO PRN (23:55)
[2021-10-15 23:56] VITALS: BP 121/94; RESP 19; TEMP 99.1; BMI 30.9
[2021-10-16] MEDS ORDERED: ALPRAZolam 0.25 MG TABLET ONE (00:31)
[2021-10-16 00:57] LABS: BASO % 0.8 % (0-2.0); EOS % 0.4 % (0-4.5); HEMATOCRIT 39.8 % (32.4-45.2); HEMOGLOBIN 13.4 GM/dL (10.7-15.3); LYMPH % 12.6 % (8-40); MCH 27.1 pg (25.7-33.7); MCHC 33.7 g/dl (32.0-36.0); MEAN CELL VOLUME 80.4 fl (80-96); MEAN PLT VOLUME 8.7 fl (7.5-11.1); NEUT % 80.2 % (42.8-82.8); PLATELET COUNT 299 10^3/uL (134-434); RBC 4.95 M/mm3 (3.60-5.2); RDW 14.9 % (11.6-15.6); WHITE BLOOD COUNT 11.4 K/mm3 (4.0-10.0)
[2021-10-16 01:22] LABS: BLOOD UREA NITROGEN 8.1 mg/dL (7-18); CALCIUM 8.2 mg/dL (8.5-10.1); MAGNESIUM 1.9 mg/dL (1.8-2.4)
[2021-10-16 01:25] LABS: CREATININE 0.6 mg/dL (0.55-1.3)
[2021-10-16 01:26] LABS: BILIRUBIN,TOTAL 0.2 mg/dL (0.2-1); TOT PROT 6.8 g/dl (6.4-8.2)
[2021-10-16 03:54] VITALS: PULSE 86
== END 2021-10-16 03:57 | disposition home or self-care (01) ==
LOC: JER 23:08
DX: R00.2 Palpitations (principal)
CPT/HCPCS: 36415; 80053; 83735; 84443; 84484; 85025; 93005; 93010; 99284-25